=== PATIENT | male | born 1960 | race Two or more races ===

== ENCOUNTER 2021-01-05 01:37 | Inpatient (IN) | payer MEDICAID ==
[~2021-01-05] VITALS: Ht 172.7 cm; Wt 90.9 kg
[~2021-01-05 01:37] MED LIST: QUET25TA PO
[2021-01-05 03:45] LABS: COVID AG,FIA SOURCE NASOPHARYNGEAL
[2021-01-05] MEDS ORDERED: LORazepam 2 MG TABLET PO ONE (03:45)
[2021-01-05 03:47] LABS: BASOPHILS % (AUTO) 0.5 % (0.0-2.0); EOSINOPHILS % (AUTO) 0.6 % (1.0-6.0); HEMOGLOBIN 11.8 g/dL (13.5-17.5); LYMPHOCYTES # (AUTO) 2.8 K/uL (1.0-4.8); LYMPHOCYTES % (AUTO) 21.6 % (22.0-44.0); MEAN CORPUSCULAR HEMOGLOBIN 28.1 pg (26.0-34.0); MEAN CORPUSCULAR HGB CONC 32.7 G/dL (31.0-37.0); MEAN CORPUSCULAR VOLUME 86 fL (80-100); MONOCYTES # (AUTO) 0.9 K/uL (0.1-1.0); MONOCYTES % (AUTO) 7.1 % (2.0-9.0); NEUTROPHILS % (AUTO) 70.2 % (40.0-70.0); PLATELET COUNT (AUTO) 250 K/uL (150-450); RED BLOOD CELL COUNT(AUTO) 4.18 MIL/uL (4.50-5.90); RED CELL DISTRIBUTION WIDTH 16.6 % (11.5-14.5)
[2021-01-05 03:52] LABS: CALCIUM, TOTAL 8.9 mg/dL (8.8-10.5); CREATININE 1.68 mg/dL (0.60-1.30); POTASSIUM 3.9 mmol/L (3.5-5.1)
[2021-01-05 03:58] LABS: ALBUMIN 3.5 g/dL (3.4-5.0); BILIRUBIN,TOTAL 0.4 mg/dL (0.1-1.0); TOTAL PROTEIN, SERUM 9.2 g/dL (6.4-8.2)
[2021-01-05 04:41] LABS: AMPHET/METH SCREEN,URINE POSITIVE (NEGATIVE); BARBITURATE SCREEN, URINE NEGATIVE (NEGATIVE); BENZODIAZEPINES SCREEN,URINE NEGATIVE (NEGATIVE); CANNABINOID SCREEN,URINE POSITIVE (NEGATIVE); COCAINE SCREEN,URINE NEGATIVE (NEGATIVE); METHADONE SCREEN, URINE NEGATIVE (NEGATIVE); OPIATE SCREEN,URINE NEGATIVE (NEGATIVE)
[2021-01-05 04:45] VITALS: BP 149/81
[2021-01-05 04:45] LABS: PHENCYCLIDINE SCREEN,URINE NEGATIVE (NEGATIVE)
[2021-01-05] MEDS ORDERED: LORazepam 2 MG TABLET PO PRN (04:45)
[2021-01-05] MEDS ORDERED: HALOPERIDOL 5 MG TABLET PO PRN (04:45)
[2021-01-05 05:45] LABS: APPEARANCE,URINE TURBID (CLEAR); BILIRUBIN,URINE NEGATIVE (NEGATIVE); GLUCOSE, URINE (UA) NEGATIVE (NEGATIVE); KETONES,URINE TRACE mg/dL (NEGATIVE); LEUKOCYTE ESTERASE ,URINE NEGATIVE (NEGATIVE); NITRATE,URINE NEGATIVE (NEGATIVE); OCCULT BLOOD,URINE TRACE (NEGATIVE); PROTEIN,URINE SEE CONFIRM (NEGATIVE); UROBILINOGEN,URINE 0.2 mg/dL (<=1.0)
[2021-01-05 05:46] LABS: RBC,URINE 0-2 /HPF (0-2); SULFOSALICYLIC ACID,URINE 3+ (Negative)
[2021-01-05 05:47] LABS: BACTERIA,URINE Many /HPF (None Seen)
[2021-01-05] MEDS ORDERED: INFLUENZA VIRUS VACCINE QVS 2021-22 (6MO+)/PF 60 MCG/0.5 ML SYRINGE IM. ONE (06:30)
[2021-01-05] MEDS ORDERED: PETROLATUM,WHITE 28 GM JELLY TP PRN (06:45)
[2021-01-05] MEDS ORDERED: ACETAMINOPHEN 325 MG TABLET PO PRN (06:45)
[2021-01-05] MEDS ORDERED: DOCUSATE SODIUM 100 MG CAPSULE PO PRN (06:45)
[2021-01-05] MEDS ORDERED: LOPERAMIDE HCL 2 MG CAPSULE PO PRN (06:45)
[2021-01-05] MEDS ORDERED: ALBUTEROL SULFATE HFA 90 MCG/PUFF 8 GM INHALER IH PRN (06:45)
[2021-01-05] MEDS ORDERED: NICOTINE 14 MG/24 HOUR PATCH TD PRN (06:45)
[2021-01-05] MEDS ORDERED: ONDANSETRON HCL 4 MG TABLET PO PRN (06:45)
[2021-01-05] MEDS ORDERED: IBUPROFEN 400 MG TABLET PO PRN (06:45)
[2021-01-05] MEDS ORDERED: MAG HYDROX/AL HYDROX/SIMETH ES 30 ML SUSPENSION UDCUP PO PRN (06:45)
[2021-01-05] MEDS ORDERED: CloNIDine HCL 0.1 MG TABLET PO PRN (06:45)
[2021-01-05] MEDS ORDERED: GuaiFENesin/D-METHORPHAN [SUGAR-FREE] 200-20MG/10 ML SYRUP UDCUP PO PRN (06:45)
[2021-01-05] MEDS ORDERED: MAGNESIUM HYDROXIDE SUSPENSION 30 ML UDCUP PO PRN (06:45)
[2021-01-05 10:08] VITALS: BP 147/84
[2021-01-05 12:37] VITALS: BP 142/86
[2021-01-05 16:45] VITALS: BP 129/90
[2021-01-05] MEDS: QUEtiapine FUMARATE 100 MG TABLET PO SCH (20:08)
[2021-01-06 06:54] LABS: CHOL/HDL RATIO 2.7 (4.2-7.3)
[2021-01-06 09:57] VITALS: BP 138/82
[2021-01-06 12:57] VITALS: BP 128/82
[2021-01-06 17:07] VITALS: BP 139/85
[2021-01-06 18:59] VITALS: BP 132/79
[2021-01-06] MEDS ORDERED: TraMADol HCL 50 MG TABLET PO PRN (19:45)
[2021-01-06] MEDS: QUEtiapine FUMARATE 100 MG TABLET PO SCH (20:25)
[2021-01-07 09:53] VITALS: BP 130/76
[2021-01-07 12:50] VITALS: BP 128/79
[2021-01-07 16:30] VITALS: BP 136/76
[2021-01-07 17:17] VITALS: BP 131/77
[2021-01-07] MEDS: QUEtiapine FUMARATE 100 MG TABLET PO SCH (20:21)
[2021-01-08 08:00] VITALS: BP 110/74
[2021-01-08 16:45] VITALS: BP 138/89
[2021-01-08] MEDS: QUEtiapine FUMARATE 100 MG TABLET PO SCH (20:21)
[2021-01-08] MEDS: ZOLPIDEM TARTRATE 10 MG TABLET PO PRN (21:15)
[2021-01-09 08:00] VITALS: BP 140/94
[2021-01-09 16:42] VITALS: BP 147/94
[2021-01-09] MEDS: QUEtiapine FUMARATE 100 MG TABLET PO SCH (20:19)
[2021-01-10 07:43] LABS: BASOPHILS % (AUTO) 0.6 % (0.0-2.0); EOSINOPHILS % (AUTO) 4.6 % (1.0-6.0); HEMATOCRIT 35.4 % (41-53); HEMOGLOBIN 11.6 g/dL (13.5-17.5); LYMPHOCYTES # (AUTO) 2.6 K/uL (1.0-4.8); MEAN CORPUSCULAR HEMOGLOBIN 28.7 pg (26.0-34.0); MEAN CORPUSCULAR HGB CONC 32.7 G/dL (31.0-37.0); MEAN CORPUSCULAR VOLUME 88 fL (80-100); MONOCYTES # (AUTO) 0.8 K/uL (0.1-1.0); MONOCYTES % (AUTO) 9.9 % (2.0-9.0); NEUTROPHILS # (AUTO) 4.7 K/uL (1.8-7.7); NEUTROPHILS % (AUTO) 54.9 % (40.0-70.0); PLATELET COUNT (AUTO) 231 K/uL (150-450); RED BLOOD CELL COUNT(AUTO) 4.04 MIL/uL (4.50-5.90); RED CELL DISTRIBUTION WIDTH 16.8 % (11.5-14.5)
[2021-01-10 07:55] LABS: CALCIUM, TOTAL 8.4 mg/dL (8.8-10.5); CREATININE 1.39 mg/dL (0.60-1.30); POTASSIUM 4.7 mmol/L (3.5-5.1)
[2021-01-10 08:00] VITALS: BP 139/71
[2021-01-10 17:14] VITALS: BP 111/79
[2021-01-10 20:00] VITALS: BP 134/78
[2021-01-10] MEDS: QUEtiapine FUMARATE 200 MG TABLET PO SCH (20:07)
[2021-01-11 08:20] VITALS: BP 108/64
[2021-01-11 16:00] VITALS: BP 151/92
[2021-01-11] MEDS: QUEtiapine FUMARATE 200 MG TABLET PO SCH (20:25)
[2021-01-12] MEDS: SERTRALINE HCL 50 MG TABLET PO SCH (14:21)
[2021-01-12 16:41] VITALS: BP 140/90
[2021-01-12] MEDS: QUEtiapine FUMARATE 200 MG TABLET PO SCH (20:46)
[2021-01-12 21:22] LABS: COVID AG,FIA SOURCE NASAL SWAB
[2021-01-13] MEDS: SERTRALINE HCL 50 MG TABLET PO SCH (08:46)
[2021-01-13 09:47] VITALS: BP 142/81
[2021-01-13 16:20] VITALS: BP 136/80
[2021-01-13] MEDS: QUEtiapine FUMARATE 200 MG TABLET PO SCH (20:58)
[2021-01-13] MEDS: ZOLPIDEM TARTRATE 10 MG TABLET PO PRN (20:59)
[2021-01-14 08:24] VITALS: BP 134/95
[2021-01-14] MEDS: SERTRALINE HCL 50 MG TABLET PO SCH (09:38)
[2021-01-14 16:29] VITALS: BP 149/91
[2021-01-14] MEDS: QUEtiapine FUMARATE 200 MG TABLET PO SCH (21:34)
[2021-01-14] MEDS: ZOLPIDEM TARTRATE 10 MG TABLET PO PRN (21:35)
[2021-01-15] MEDS: SERTRALINE HCL 50 MG TABLET PO SCH (08:38)
[2021-01-15 08:40] VITALS: BP 144/88
[2021-01-15 16:42] VITALS: BP 159/94
[2021-01-15] MEDS: ZOLPIDEM TARTRATE 10 MG TABLET PO PRN (20:15)
[2021-01-15] MEDS: QUEtiapine FUMARATE 200 MG TABLET PO SCH (20:15)
[2021-01-16] MEDS: SERTRALINE HCL 50 MG TABLET PO SCH (08:22)
[2021-01-16 08:40] VITALS: BP 152/86
[2021-01-16 16:00] VITALS: BP 149/93
[2021-01-16 16:24] VITALS: BP 149/93
[2021-01-16] MEDS: QUEtiapine FUMARATE 200 MG TABLET PO SCH (20:07)
[2021-01-16] MEDS: ZOLPIDEM TARTRATE 10 MG TABLET PO PRN (21:39)
[2021-01-17] MEDS: SERTRALINE HCL 50 MG TABLET PO SCH (08:17)
[2021-01-17 09:42] VITALS: BP 121/76
[2021-01-17 16:00] VITALS: BP 140/92
[2021-01-17] MEDS: QUEtiapine FUMARATE 200 MG TABLET PO SCH (20:09)
[2021-01-18] MEDS: SERTRALINE HCL 50 MG TABLET PO SCH (08:52)
[2021-01-18] MEDS: MULTIVITAMINS WITH MINERALS, THERAPEUTIC TABLET PO SCH (08:52)
[2021-01-18 09:28] VITALS: BP 155/96
[2021-01-18 16:41] VITALS: BP 141/82
[2021-01-18] MEDS: QUEtiapine FUMARATE 200 MG TABLET PO SCH (20:28)
[2021-01-19 09:05] VITALS: BP 133/86
[2021-01-19 09:22] LABS: COVID AG,FIA SOURCE NASAL SWAB
[2021-01-19] MEDS: MULTIVITAMINS WITH MINERALS, THERAPEUTIC TABLET PO SCH (09:27)
[2021-01-19] MEDS: SERTRALINE HCL 50 MG TABLET PO SCH (09:27)
[2021-01-19 16:00] VITALS: BP 142/92
[2021-01-19] MEDS: QUEtiapine FUMARATE 200 MG TABLET PO SCH (20:17)
[2021-01-20] MEDS: SERTRALINE HCL 50 MG TABLET PO SCH (08:47)
[2021-01-20] MEDS: MULTIVITAMINS WITH MINERALS, THERAPEUTIC TABLET PO SCH (08:47)
[2021-01-20 09:42] VITALS: BP 145/82
[2021-01-20 16:00] VITALS: BP 104/58
[2021-01-20 16:18] VITALS: BP 104/60
[2021-01-20] MEDS: QUEtiapine FUMARATE 200 MG TABLET PO SCH (20:07)
[2021-01-21 08:30] VITALS: BP 110/77
[2021-01-21] MEDS: MULTIVITAMINS WITH MINERALS, THERAPEUTIC TABLET PO SCH (08:40)
[2021-01-21] MEDS: SERTRALINE HCL 50 MG TABLET PO SCH (08:40)
[2021-01-21 16:14] VITALS: BP 131/77
[2021-01-21] MEDS: QUEtiapine FUMARATE 200 MG TABLET PO SCH (20:04)
[2021-01-22] MEDS: SERTRALINE HCL 50 MG TABLET PO SCH (09:20)
[2021-01-22] MEDS: MULTIVITAMINS WITH MINERALS, THERAPEUTIC TABLET PO SCH (09:20)
[2021-01-22 09:52] VITALS: BP 140/93
[2021-01-22 16:00] VITALS: BP 120/80
[2021-01-22] MEDS: QUEtiapine FUMARATE 200 MG TABLET PO SCH (20:07)
[2021-01-23] MEDS: SERTRALINE HCL 50 MG TABLET PO SCH (08:25)
[2021-01-23] MEDS: MULTIVITAMINS WITH MINERALS, THERAPEUTIC TABLET PO SCH (08:25)
[2021-01-23 16:54] VITALS: BP 140/72
[2021-01-23] MEDS: QUEtiapine FUMARATE 200 MG TABLET PO SCH (21:36)
[2021-01-23] MEDS: ZOLPIDEM TARTRATE 10 MG TABLET PO PRN (21:36)
[2021-01-24] MEDS: MULTIVITAMINS WITH MINERALS, THERAPEUTIC TABLET PO SCH (08:27)
[2021-01-24] MEDS: SERTRALINE HCL 50 MG TABLET PO SCH (08:27)
[2021-01-24 09:00] VITALS: BP 140/86
[2021-01-24 16:00] VITALS: BP 112/69
[2021-01-24] MEDS: QUEtiapine FUMARATE 200 MG TABLET PO SCH (20:06)
[2021-01-25 08:00] VITALS: BP 111/72
[2021-01-25] MEDS: MULTIVITAMINS WITH MINERALS, THERAPEUTIC TABLET PO SCH (08:46)
[2021-01-25] MEDS: SERTRALINE HCL 100 MG TABLET PO SCH (08:46)
[2021-01-25 16:48] VITALS: BP 103/73
[2021-01-25] MEDS: QUEtiapine FUMARATE 200 MG TABLET PO SCH (20:02)
[2021-01-26 08:00] VITALS: BP 128/87
[2021-01-26] MEDS: MULTIVITAMINS WITH MINERALS, THERAPEUTIC TABLET PO SCH (08:57)
[2021-01-26] MEDS: SERTRALINE HCL 100 MG TABLET PO SCH (08:57)
[2021-01-26 13:38] LABS: COVID AG,FIA SOURCE NASOPHARYNGEAL
[2021-01-26 17:08] VITALS: BP 127/77
[2021-01-26] MEDS: QUEtiapine FUMARATE 200 MG TABLET PO SCH (20:10)
[2021-01-27] MEDS: MULTIVITAMINS WITH MINERALS, THERAPEUTIC TABLET PO SCH (08:41)
[2021-01-27] MEDS: SERTRALINE HCL 100 MG TABLET PO SCH (08:41)
[2021-01-27 10:19] VITALS: BP 126/83
[2021-01-27 16:00] VITALS: BP 136/85
[2021-01-27] MEDS: QUEtiapine FUMARATE 200 MG TABLET PO SCH (20:10)
[2021-01-28 08:42] VITALS: BP 140/87
[2021-01-28] MEDS: MULTIVITAMINS WITH MINERALS, THERAPEUTIC TABLET PO SCH (08:58)
[2021-01-28] MEDS: SERTRALINE HCL 100 MG TABLET PO SCH (08:58)
[2021-01-28 16:25] VITALS: BP 126/79
[2021-01-28] MEDS: QUEtiapine FUMARATE 200 MG TABLET PO SCH (20:14)
[2021-01-29] MEDS: MULTIVITAMINS WITH MINERALS, THERAPEUTIC TABLET PO SCH (08:23)
[2021-01-29] MEDS: SERTRALINE HCL 100 MG TABLET PO SCH (08:23)
[2021-01-29 09:00] VITALS: BP 105/71
[2021-01-29 16:00] VITALS: BP 127/87
[2021-01-29] MEDS: QUEtiapine FUMARATE 200 MG TABLET PO SCH (20:06)
[2021-01-30] MEDS: MULTIVITAMINS WITH MINERALS, THERAPEUTIC TABLET PO SCH (09:21)
[2021-01-30] MEDS: SERTRALINE HCL 100 MG TABLET PO SCH (09:21)
[2021-01-30 10:08] VITALS: BP 140/88
[2021-01-30 16:45] VITALS: BP 135/82
[2021-01-30] MEDS: QUEtiapine FUMARATE 200 MG TABLET PO SCH (20:08)
[2021-01-31 08:10] VITALS: BP 121/78
[2021-01-31] MEDS: MULTIVITAMINS WITH MINERALS, THERAPEUTIC TABLET PO SCH (09:13)
[2021-01-31] MEDS: SERTRALINE HCL 100 MG TABLET PO SCH (09:13)
[2021-01-31 16:28] VITALS: BP 134/79
[2021-01-31] MEDS: QUEtiapine FUMARATE 200 MG TABLET PO SCH (20:59)
[2021-02-01 08:00] VITALS: BP 115/72
[2021-02-01 08:30] VITALS: BP 115/72
[2021-02-01] MEDS: SERTRALINE HCL 100 MG TABLET PO SCH (08:36)
[2021-02-01] MEDS: MULTIVITAMINS WITH MINERALS, THERAPEUTIC TABLET PO SCH (08:36)
[2021-02-01 16:16] VITALS: BP 129/74
[2021-02-01] MEDS: QUEtiapine FUMARATE 200 MG TABLET PO SCH (20:12)
[2021-02-02 08:28] LABS: COVID AG,FIA SOURCE NASAL SWAB
[2021-02-02 08:47] VITALS: BP 120/69
[2021-02-02] MEDS: MULTIVITAMINS WITH MINERALS, THERAPEUTIC TABLET PO SCH (09:33)
[2021-02-02] MEDS: SERTRALINE HCL 100 MG TABLET PO SCH (09:33)
[2021-02-02 16:14] VITALS: BP 107/71
[2021-02-02] MEDS: QUEtiapine FUMARATE 200 MG TABLET PO SCH (20:12)
[2021-02-03] MEDS: SERTRALINE HCL 100 MG TABLET PO SCH (08:34)
[2021-02-03] MEDS: MULTIVITAMINS WITH MINERALS, THERAPEUTIC TABLET PO SCH (08:34)
[2021-02-03 09:00] VITALS: BP 120/68
[2021-02-03 16:24] VITALS: BP 115/80
[2021-02-03] MEDS: QUEtiapine FUMARATE 200 MG TABLET PO SCH (20:04)
[2021-02-04] MEDS: MULTIVITAMINS WITH MINERALS, THERAPEUTIC TABLET PO SCH (08:20)
[2021-02-04] MEDS: SERTRALINE HCL 100 MG TABLET PO SCH (08:20)
[2021-02-04 09:38] VITALS: BP 140/73
[2021-02-04 16:15] VITALS: BP 126/80
[2021-02-04] MEDS: QUEtiapine FUMARATE 200 MG TABLET PO SCH (20:27)
[2021-02-05] MEDS: MULTIVITAMINS WITH MINERALS, THERAPEUTIC TABLET PO SCH (08:36)
[2021-02-05] MEDS: SERTRALINE HCL 100 MG TABLET PO SCH (08:36)
[2021-02-05 09:32] VITALS: BP 123/74
[2021-02-05 16:21] VITALS: BP 144/87
[2021-02-05] MEDS: QUEtiapine FUMARATE 200 MG TABLET PO SCH (20:44)
[2021-02-06 08:13] VITALS: BP 160/95
[2021-02-06] MEDS: MULTIVITAMINS WITH MINERALS, THERAPEUTIC TABLET PO SCH (09:20)
[2021-02-06] MEDS: SERTRALINE HCL 100 MG TABLET PO SCH (09:20)
[2021-02-06 16:23] VITALS: BP 137/78
[2021-02-06] MEDS: QUEtiapine FUMARATE 200 MG TABLET PO SCH (20:03)
[2021-02-07] MEDS: MULTIVITAMINS WITH MINERALS, THERAPEUTIC TABLET PO SCH (08:36)
[2021-02-07] MEDS: SERTRALINE HCL 100 MG TABLET PO SCH (08:36)
[2021-02-07 09:18] VITALS: BP 137/81
[2021-02-07 16:24] VITALS: BP 122/79
[2021-02-07] MEDS: QUEtiapine FUMARATE 200 MG TABLET PO SCH (20:26)
[2021-02-08 08:00] VITALS: BP 99/63
[2021-02-08] MEDS: MULTIVITAMINS WITH MINERALS, THERAPEUTIC TABLET PO SCH (09:13)
[2021-02-08] MEDS: SERTRALINE HCL 100 MG TABLET PO SCH (09:13)
[2021-02-08 16:00] VITALS: BP 126/84
[2021-02-08] MEDS: QUEtiapine FUMARATE 200 MG TABLET PO SCH (20:29)
[2021-02-09 09:24] VITALS: BP 136/93
[2021-02-09 09:57] LABS: COVID AG,FIA SOURCE NASAL SWAB
[2021-02-09] MEDS: SERTRALINE HCL 100 MG TABLET PO SCH (10:38)
[2021-02-09] MEDS: MULTIVITAMINS WITH MINERALS, THERAPEUTIC TABLET PO SCH (10:38)
[2021-02-09 16:17] VITALS: BP 144/82
[2021-02-09] MEDS: QUEtiapine FUMARATE 200 MG TABLET PO SCH (20:32)
[2021-02-09] MEDS: ZOLPIDEM TARTRATE 10 MG TABLET PO PRN (20:51)
[2021-02-10] MEDS: SERTRALINE HCL 100 MG TABLET PO SCH (08:28)
[2021-02-10] MEDS: MULTIVITAMINS WITH MINERALS, THERAPEUTIC TABLET PO SCH (08:28)
[2021-02-10 09:31] VITALS: BP 121/63
[2021-02-10 16:24] VITALS: BP 133/84
[2021-02-10] MEDS: QUEtiapine FUMARATE 200 MG TABLET PO SCH (20:27)
[2021-02-11 08:34] VITALS: BP 135/84
[2021-02-11] MEDS: MULTIVITAMINS WITH MINERALS, THERAPEUTIC TABLET PO SCH (10:04)
[2021-02-11] MEDS: SERTRALINE HCL 100 MG TABLET PO SCH (10:05)
[2021-02-11 16:34] VITALS: BP 119/69
[2021-02-11] MEDS: QUEtiapine FUMARATE 200 MG TABLET PO SCH (20:10)
[2021-02-12 08:11] VITALS: BP 141/82
[2021-02-12] MEDS: MULTIVITAMINS WITH MINERALS, THERAPEUTIC TABLET PO SCH (09:06)
[2021-02-12] MEDS: SERTRALINE HCL 100 MG TABLET PO SCH (09:06)
[2021-02-12 16:14] VITALS: BP 123/82
[2021-02-12] MEDS: QUEtiapine FUMARATE 200 MG TABLET PO SCH (20:18)
[2021-02-12] MEDS: ZOLPIDEM TARTRATE 10 MG TABLET PO PRN (20:34)
[2021-02-13 09:21] VITALS: BP 141/87
[2021-02-13] MEDS: SERTRALINE HCL 100 MG TABLET PO SCH (09:41)
[2021-02-13] MEDS: MULTIVITAMINS WITH MINERALS, THERAPEUTIC TABLET PO SCH (09:41)
[2021-02-13 16:00] VITALS: BP 151/83
[2021-02-13] MEDS: QUEtiapine FUMARATE 200 MG TABLET PO SCH (20:03)
[2021-02-14 08:29] VITALS: BP 134/88
[2021-02-14] MEDS: MULTIVITAMINS WITH MINERALS, THERAPEUTIC TABLET PO SCH (09:34)
[2021-02-14] MEDS: SERTRALINE HCL 100 MG TABLET PO SCH (09:34)
[2021-02-14 16:00] VITALS: BP 125/59
[2021-02-14] MEDS: QUEtiapine FUMARATE 200 MG TABLET PO SCH (20:04)
[2021-02-15 08:31] VITALS: BP 151/109
[2021-02-15] MEDS: MULTIVITAMINS WITH MINERALS, THERAPEUTIC TABLET PO SCH (08:45)
[2021-02-15] MEDS: SERTRALINE HCL 100 MG TABLET PO SCH (08:45)
[2021-02-15 16:16] VITALS: BP 130/90
[2021-02-15] MEDS: QUEtiapine FUMARATE 200 MG TABLET PO SCH (20:12)
[2021-02-16 07:53] LABS: COVID AG,FIA SOURCE NASAL SWAB
[2021-02-16 08:30] VITALS: BP 120/78
[2021-02-16] MEDS: MULTIVITAMINS WITH MINERALS, THERAPEUTIC TABLET PO SCH (08:30)
[2021-02-16] MEDS: SERTRALINE HCL 100 MG TABLET PO SCH (08:30)
[2021-02-16 16:00] VITALS: BP 127/73
[2021-02-16] MEDS: QUEtiapine FUMARATE 200 MG TABLET PO SCH (21:05)
[2021-02-17 09:15] VITALS: BP 147/76
[2021-02-17] MEDS: SERTRALINE HCL 100 MG TABLET PO SCH (09:26)
[2021-02-17] MEDS: MULTIVITAMINS WITH MINERALS, THERAPEUTIC TABLET PO SCH (09:26)
[2021-02-17 16:27] VITALS: BP 126/75
[2021-02-17] MEDS: QUEtiapine FUMARATE 200 MG TABLET PO SCH (20:06)
[2021-02-18 08:10] VITALS: BP 139/93
[2021-02-18] MEDS: SERTRALINE HCL 100 MG TABLET PO SCH (10:38)
[2021-02-18] MEDS: MULTIVITAMINS WITH MINERALS, THERAPEUTIC TABLET PO SCH (10:38)
[2021-02-18 16:46] VITALS: BP 103/63
[2021-02-18] MEDS: QUEtiapine FUMARATE 200 MG TABLET PO SCH (20:29)
[2021-02-19] MEDS: MULTIVITAMINS WITH MINERALS, THERAPEUTIC TABLET PO SCH (08:38)
[2021-02-19] MEDS: SERTRALINE HCL 100 MG TABLET PO SCH (08:38)
[2021-02-19 09:02] VITALS: BP 129/82
[2021-02-19 16:00] VITALS: BP 130/83
[2021-02-19] MEDS: QUEtiapine FUMARATE 200 MG TABLET PO SCH (20:26)
[2021-02-20 07:40] VITALS: BP 155/89
[2021-02-20 08:30] VITALS: BP 155/89
[2021-02-20] MEDS: SERTRALINE HCL 100 MG TABLET PO SCH (09:06)
[2021-02-20] MEDS: MULTIVITAMINS WITH MINERALS, THERAPEUTIC TABLET PO SCH (09:06)
[2021-02-20 16:37] VITALS: BP 123/82
[2021-02-20] MEDS: QUEtiapine FUMARATE 200 MG TABLET PO SCH (20:07)
[2021-02-21 08:00] VITALS: BP 104/69
[2021-02-21] MEDS: SERTRALINE HCL 100 MG TABLET PO SCH (08:31)
[2021-02-21] MEDS: MULTIVITAMINS WITH MINERALS, THERAPEUTIC TABLET PO SCH (08:31)
[2021-02-21 16:30] VITALS: BP 144/85
[2021-02-21] MEDS: QUEtiapine FUMARATE 200 MG TABLET PO SCH (20:09)
[2021-02-22 08:00] VITALS: BP 132/78
[2021-02-22] MEDS: SERTRALINE HCL 100 MG TABLET PO SCH (09:21)
[2021-02-22] MEDS: MULTIVITAMINS WITH MINERALS, THERAPEUTIC TABLET PO SCH (09:21)
[2021-02-22 16:00] VITALS: BP 124/80
[2021-02-22] MEDS: QUEtiapine FUMARATE 200 MG TABLET PO SCH (20:20)
[2021-02-23 08:00] VITALS: BP 118/80
[2021-02-23] MEDS: MULTIVITAMINS WITH MINERALS, THERAPEUTIC TABLET PO SCH (08:38)
[2021-02-23] MEDS: SERTRALINE HCL 100 MG TABLET PO SCH (08:38)
[2021-02-23 16:37] VITALS: BP 116/75
[2021-02-23] MEDS: QUEtiapine FUMARATE 200 MG TABLET PO SCH (20:17)
[2021-02-24 08:00] VITALS: BP 141/91
[2021-02-24] MEDS: MULTIVITAMINS WITH MINERALS, THERAPEUTIC TABLET PO SCH (09:06)
[2021-02-24] MEDS: SERTRALINE HCL 100 MG TABLET PO SCH (09:06)
[2021-02-24 11:46] LABS: COVID AG,FIA SOURCE NASOPHARYNGEAL
[2021-02-24 16:28] VITALS: BP 124/124
[2021-02-24] MEDS: QUEtiapine FUMARATE 200 MG TABLET PO SCH (20:18)
[2021-02-25] MEDS: SERTRALINE HCL 100 MG TABLET PO SCH (07:57)
[2021-02-25] MEDS: MULTIVITAMINS WITH MINERALS, THERAPEUTIC TABLET PO SCH (07:57)
[2021-02-25 08:00] VITALS: BP 141/97
[2021-02-25 16:23] VITALS: BP 108/67
[2021-02-25] MEDS: QUEtiapine FUMARATE 200 MG TABLET PO SCH (20:00)
[2021-02-26] MEDS: MULTIVITAMINS WITH MINERALS, THERAPEUTIC TABLET PO SCH (08:20)
[2021-02-26] MEDS: SERTRALINE HCL 100 MG TABLET PO SCH (08:20)
[2021-02-26 08:26] VITALS: BP 138/81
[2021-02-26 16:36] VITALS: BP 135/75
[2021-02-26] MEDS: QUEtiapine FUMARATE 200 MG TABLET PO SCH (20:17)
[2021-02-27 08:00] VITALS: BP 128/74
[2021-02-27] MEDS: MULTIVITAMINS WITH MINERALS, THERAPEUTIC TABLET PO SCH (08:52)
[2021-02-27] MEDS: SERTRALINE HCL 100 MG TABLET PO SCH (08:52)
[2021-02-27 16:31] VITALS: BP 155/84
[2021-02-27] MEDS: QUEtiapine FUMARATE 200 MG TABLET PO SCH (20:05)
[2021-02-28] MEDS: MULTIVITAMINS WITH MINERALS, THERAPEUTIC TABLET PO SCH (08:05)
[2021-02-28] MEDS: SERTRALINE HCL 100 MG TABLET PO SCH (08:05)
[2021-02-28 09:52] VITALS: BP 132/84
[2021-02-28 16:13] VITALS: BP 151/84
[2021-02-28] MEDS: QUEtiapine FUMARATE 200 MG TABLET PO SCH (20:50)
[2021-03-01] MEDS: MULTIVITAMINS WITH MINERALS, THERAPEUTIC TABLET PO SCH (08:25)
[2021-03-01] MEDS: SERTRALINE HCL 100 MG TABLET PO SCH (08:25)
[2021-03-01 08:30] VITALS: BP 157/63
[2021-03-01] MEDS ORDERED: SERT-440 PO (09:55)
[2021-03-01] MEDS ORDERED: QUET200T30 PO (09:55)
== END 2021-03-01 12:00 | disposition home or self-care (01) | DRG 750 ==
LOC: EMS 01:38 → 3EI 04:43
PROVIDERS: ADMIT Psychiatry & Neurology Psychiatry; ATTEND Psychiatry & Neurology Psychiatry
DX: F25.1 Schizoaffective disorder, depressive type (principal); N17.9 Acute kidney failure, unspecified; R45.851 Suicidal ideations; D72.829 Elevated white blood cell count, unspecified; F10.10 Alcohol abuse, uncomplicated; F17.200 Nicotine dependence, unspecified, uncomplicated; F15.10 Other stimulant abuse, uncomplicated; F12.10 Cannabis abuse, uncomplicated; Y90.1 Blood alcohol level of 20-39 mg/100 ml; F41.9 Anxiety disorder, unspecified; F32.A Depression, unspecified; D64.9 Anemia, unspecified; Z20.822 Contact with and (suspected) exposure to COVID-19; Z59.00 Homelessness unspecified; Z79.899 Other long term (current) drug therapy; Z71.6 Tobacco abuse counseling
CPT/HCPCS: 80048; 80053; 80061; 81001; 81002; 83036; 85025; 87081; 87086; 99285; G0480

== ENCOUNTER 2021-03-13 09:56 | Emergency (ER) | payer MEDICAID ==
[~2021-03-13] VITALS: Ht 170.2 cm; Wt 72.7 kg
[~2021-03-13 09:56] MED LIST changes: +QUET200T30 PO; -QUET25TA PO; +SERT-440 PO
[2021-03-13 12:55] LABS: BASOPHILS % (AUTO) 0.4 % (0.0-2.0); EOSINOPHILS % (AUTO) 0.6 % (1.0-6.0); HEMATOCRIT 47.6 % (41-53); HEMOGLOBIN 15.7 g/dL (13.5-17.5); LYMPHOCYTES # (AUTO) 2.6 K/uL (1.0-4.8); LYMPHOCYTES % (AUTO) 23.3 % (22.0-44.0); MEAN CORPUSCULAR HEMOGLOBIN 26.9 pg (26.0-34.0); MEAN CORPUSCULAR HGB CONC 32.9 G/dL (31.0-37.0); MEAN CORPUSCULAR VOLUME 82 fL (80-100); MONOCYTES # (AUTO) 0.6 K/uL (0.1-1.0); MONOCYTES % (AUTO) 5.8 % (2.0-9.0); NEUTROPHILS # (AUTO) 7.7 K/uL (1.8-7.7); NEUTROPHILS % (AUTO) 69.9 % (40.0-70.0); PLATELET COUNT (AUTO) 364 K/uL (150-450); RED BLOOD CELL COUNT(AUTO) 5.81 MIL/uL (4.50-5.90); RED CELL DISTRIBUTION WIDTH 12.2 % (11.5-14.5)
[2021-03-13 13:27] LABS: ANION GAP 12 mmol/L (8-16); CALCIUM, TOTAL 8.5 mg/dL (8.8-10.5); CARBON DIOXIDE 21 mmol/L (22-29); CHLORIDE 104 mmol/L (98-107); CREATININE 1.65 mg/dL (0.60-1.30); GLOMERULAR FILTR. RATE CALC 43 mL/min (>60); GLUCOSE,RANDOM 112 mg/dL (70-110); POTASSIUM 4.6 mmol/L (3.5-5.1); SODIUM SERUM 137 mmol/L (136-145); UREA NITROGEN, BLOOD 48 mg/dL (7-18)
[2021-03-13 13:32] LABS: ALANINE AMINOTRANSFERASE 38 U/L (12-78); ALBUMIN 3.2 g/dL (3.4-5.0); ALKALINE PHOSPHATASE 83 U/L (46-116); ASPARTATE AMINOTRANSFERASE 37 U/L (15-37); BILIRUBIN,TOTAL 0.4 mg/dL (0.1-1.0); TOTAL PROTEIN, SERUM 8.6 g/dL (6.4-8.2)
[2021-03-13 14:07] LABS: AMPHET/METH SCREEN,URINE POSITIVE (NEGATIVE); BARBITURATE SCREEN, URINE NEGATIVE (NEGATIVE); BENZODIAZEPINES SCREEN,URINE NEGATIVE (NEGATIVE); CANNABINOID SCREEN,URINE NEGATIVE (NEGATIVE); COCAINE SCREEN,URINE NEGATIVE (NEGATIVE); METHADONE SCREEN, URINE NEGATIVE (NEGATIVE); OPIATE SCREEN,URINE NEGATIVE (NEGATIVE)
[2021-03-13 14:08] LABS: PHENCYCLIDINE SCREEN,URINE NEGATIVE (NEGATIVE)
[2021-03-13] MEDS ORDERED: IBUPROFEN 600 MG TABLET PO ONE (14:30)
[2021-03-13 14:32] VITALS: BP 132/78
== END 2021-03-13 14:38 | disposition home or self-care (01) ==
LOC: EMS 10:01
DX: F25.1 Schizoaffective disorder, depressive type (principal); F41.9 Anxiety disorder, unspecified; F17.210 Nicotine dependence, cigarettes, uncomplicated; F11.90 Opioid use, unspecified, uncomplicated; F15.90 Other stimulant use, unspecified, uncomplicated
CPT/HCPCS: 36415; 80053; 80307; 85025; 99284; G0480

== ENCOUNTER 2021-03-17 04:20 | Emergency (ER) | payer MEDICAID ==
[2021-03-17 05:36] LABS: BASOPHILS % (AUTO) 0.5 % (0.0-2.0); EOSINOPHILS % (AUTO) 1.4 % (1.0-6.0); HEMOGLOBIN 11.1 g/dL (13.5-17.5); LYMPHOCYTES # (AUTO) 1.4 K/uL (1.0-4.8); LYMPHOCYTES % (AUTO) 14.2 % (22.0-44.0); MEAN CORPUSCULAR HEMOGLOBIN 29.4 pg (26.0-34.0); MEAN CORPUSCULAR HGB CONC 33.5 G/dL (31.0-37.0); MEAN CORPUSCULAR VOLUME 88 fL (80-100); MONOCYTES # (AUTO) 0.9 K/uL (0.1-1.0); MONOCYTES % (AUTO) 8.9 % (2.0-9.0); NEUTROPHILS # (AUTO) 7.4 K/uL (1.8-7.7); PLATELET COUNT (AUTO) 268 K/uL (150-450); RED BLOOD CELL COUNT(AUTO) 3.77 MIL/uL (4.50-5.90); RED CELL DISTRIBUTION WIDTH 17.2 % (11.5-14.5)
[2021-03-17 06:02] LABS: CALCIUM, TOTAL 8.5 mg/dL (8.8-10.5); CREATININE 1.47 mg/dL (0.60-1.30); POTASSIUM 4.6 mmol/L (3.5-5.1)
[2021-03-17 06:07] LABS: ALBUMIN 3.1 g/dL (3.4-5.0); BILIRUBIN,TOTAL 0.2 mg/dL (0.1-1.0); TOTAL PROTEIN, SERUM 8.6 g/dL (6.4-8.2)
== END 2021-03-17 09:18 | disposition home or self-care (01) ==
LOC: EMS 04:23
DX: F25.1 Schizoaffective disorder, depressive type (principal); F10.20 Alcohol dependence, uncomplicated; F41.9 Anxiety disorder, unspecified; F11.90 Opioid use, unspecified, uncomplicated; F15.90 Other stimulant use, unspecified, uncomplicated; F17.210 Nicotine dependence, cigarettes, uncomplicated; Z79.899 Other long term (current) drug therapy; Y90.6 Blood alcohol level of 120-199 mg/100 ml
CPT/HCPCS: 36415; 80053; 85025; 99284; G0480

== ENCOUNTER 2021-05-01 16:25 | Inpatient (IN) | payer MEDICAID ==
[~2021-05-01] VITALS: Ht 172.7 cm; Wt 79.9 kg
[2021-05-01 19:47] LABS: BASOPHILS % (AUTO) 0.5 % (0.0-2.0); EOSINOPHILS % (AUTO) 0.4 % (1.0-6.0); HEMATOCRIT 35.3 % (41-53); HEMOGLOBIN 11.9 g/dL (13.5-17.5); LYMPHOCYTES # (AUTO) 1.8 K/uL (1.0-4.8); LYMPHOCYTES % (AUTO) 20.1 % (22.0-44.0); MEAN CORPUSCULAR HEMOGLOBIN 29.4 pg (26.0-34.0); MEAN CORPUSCULAR HGB CONC 33.7 G/dL (31.0-37.0); MEAN CORPUSCULAR VOLUME 87 fL (80-100); MONOCYTES # (AUTO) 0.7 K/uL (0.1-1.0); NEUTROPHILS # (AUTO) 6.4 K/uL (1.8-7.7); PLATELET COUNT (AUTO) 218 K/uL (150-450); RED BLOOD CELL COUNT(AUTO) 4.06 MIL/uL (4.50-5.90); RED CELL DISTRIBUTION WIDTH 15.6 % (11.5-14.5)
[2021-05-01 19:56] LABS: CALCIUM, TOTAL 8.4 mg/dL (8.8-10.5); CREATININE 1.34 mg/dL (0.60-1.30); POTASSIUM 4.1 mmol/L (3.5-5.1)
[2021-05-01 20:02] LABS: ALBUMIN 3.7 g/dL (3.4-5.0); BILIRUBIN,TOTAL 0.5 mg/dL (0.1-1.0); TOTAL PROTEIN, SERUM 9.2 g/dL (6.4-8.2)
[2021-05-01 20:12] LABS: AMPHET/METH SCREEN,URINE POSITIVE (NEGATIVE); BARBITURATE SCREEN, URINE NEGATIVE (NEGATIVE); BENZODIAZEPINES SCREEN,URINE NEGATIVE (NEGATIVE); CANNABINOID SCREEN,URINE NEGATIVE (NEGATIVE); COCAINE SCREEN,URINE NEGATIVE (NEGATIVE); METHADONE SCREEN, URINE NEGATIVE (NEGATIVE); OPIATE SCREEN,URINE NEGATIVE (NEGATIVE)
[2021-05-01 20:13] LABS: PHENCYCLIDINE SCREEN,URINE NEGATIVE (NEGATIVE)
[2021-05-01 21:14] LABS: COVID AG,FIA SOURCE NASAL SWAB
[2021-05-02 03:21] VITALS: BP 133/86
[2021-05-02] MEDS ORDERED: PNEUMOCOCCAL VACCINE POLYVALENT 0.5 ML VIAL [PPSV23] IM. ONE (03:45)
[2021-05-02] MEDS: LORazepam 2 MG TABLET PO PRN (04:08)
[2021-05-02] MEDS ORDERED: CloNIDine HCL 0.1 MG TABLET PO PRN (06:30)
[2021-05-02] MEDS ORDERED: MAG HYDROX/AL HYDROX/SIMETH ES 30 ML SUSPENSION UDCUP PO PRN (06:30)
[2021-05-02] MEDS ORDERED: ONDANSETRON HCL 4 MG TABLET PO PRN (06:30)
[2021-05-02] MEDS ORDERED: LOPERAMIDE HCL 2 MG CAPSULE PO PRN (06:30)
[2021-05-02] MEDS ORDERED: DOCUSATE SODIUM 100 MG CAPSULE PO PRN (06:30)
[2021-05-02] MEDS ORDERED: MAGNESIUM HYDROXIDE SUSPENSION 30 ML UDCUP PO PRN (06:30)
[2021-05-02] MEDS ORDERED: GuaiFENesin/D-METHORPHAN [SUGAR-FREE] 200-20MG/10 ML SYRUP UDCUP PO PRN (06:30)
[2021-05-02] MEDS ORDERED: NICOTINE 14 MG/24 HOUR PATCH TD PRN (06:30)
[2021-05-02] MEDS ORDERED: PETROLATUM,WHITE 28 GM JELLY TP PRN (06:30)
[2021-05-02] MEDS ORDERED: ALBUTEROL SULFATE HFA 90 MCG/PUFF 8 GM INHALER IH PRN (06:30)
[2021-05-02 08:41] VITALS: BP 110/76
[2021-05-02] MEDS: SERTRALINE HCL 100 MG TABLET PO SCH (14:36)
[2021-05-02 16:00] VITALS: BP 130/80
[2021-05-02] MEDS: FOLIC ACID 1 MG TABLET PO SCH (17:37)
[2021-05-02] MEDS: MULTIVITAMINS WITH MINERALS, THERAPEUTIC TABLET PO SCH (17:37)
[2021-05-02] MEDS: THIAMINE 100 MG TABLET PO SCH (17:37)
[2021-05-02] MEDS: HALOPERIDOL 5 MG TABLET PO PRN (19:30)
[2021-05-02] MEDS: QUEtiapine FUMARATE 200 MG TABLET PO SCH (21:08)
[2021-05-03 08:12] VITALS: BP 109/70
[2021-05-03] MEDS: SERTRALINE HCL 100 MG TABLET PO SCH (08:28)
[2021-05-03] MEDS: FOLIC ACID 1 MG TABLET PO SCH (08:28)
[2021-05-03] MEDS: THIAMINE 100 MG TABLET PO SCH (08:28)
[2021-05-03] MEDS: MULTIVITAMINS WITH MINERALS, THERAPEUTIC TABLET PO SCH (08:28)
[2021-05-03 16:19] VITALS: BP 112/69
[2021-05-03] MEDS: HALOPERIDOL 5 MG TABLET PO PRN (20:39)
[2021-05-03] MEDS: QUEtiapine FUMARATE 200 MG TABLET PO SCH (20:39)
[2021-05-04 08:00] VITALS: BP 95/56
[2021-05-04] MEDS: SERTRALINE HCL 100 MG TABLET PO SCH (08:23)
[2021-05-04] MEDS: FOLIC ACID 1 MG TABLET PO SCH (08:23)
[2021-05-04] MEDS: THIAMINE 100 MG TABLET PO SCH (08:23)
[2021-05-04] MEDS: MULTIVITAMINS WITH MINERALS, THERAPEUTIC TABLET PO SCH (08:23)
[2021-05-04 16:25] VITALS: BP 126/73
[2021-05-04] MEDS: QUEtiapine FUMARATE 200 MG TABLET PO SCH (20:02)
[2021-05-05 08:00] VITALS: BP 102/63
[2021-05-05] MEDS: FOLIC ACID 1 MG TABLET PO SCH (10:15)
[2021-05-05] MEDS: THIAMINE 100 MG TABLET PO SCH (10:15)
[2021-05-05] MEDS: SERTRALINE HCL 100 MG TABLET PO SCH (10:15)
[2021-05-05] MEDS: MULTIVITAMINS WITH MINERALS, THERAPEUTIC TABLET PO SCH (10:15)
[2021-05-05 16:51] VITALS: BP 118/82
[2021-05-05 19:19] VITALS: BP 136/82
[2021-05-05] MEDS: ACETAMINOPHEN 325 MG TABLET PO PRN (19:25)
[2021-05-05] MEDS: QUEtiapine FUMARATE 200 MG TABLET PO SCH (20:19)
[2021-05-06 08:00] VITALS: BP 106/66
[2021-05-06] MEDS: FOLIC ACID 1 MG TABLET PO SCH (08:16)
[2021-05-06] MEDS: THIAMINE 100 MG TABLET PO SCH (08:16)
[2021-05-06] MEDS: SERTRALINE HCL 100 MG TABLET PO SCH (08:16)
[2021-05-06] MEDS: MULTIVITAMINS WITH MINERALS, THERAPEUTIC TABLET PO SCH (08:16)
[2021-05-06 16:30] VITALS: BP 119/82
[2021-05-06] MEDS: QUEtiapine FUMARATE 200 MG TABLET PO SCH (20:49)
[2021-05-07 08:00] VITALS: BP 107/61
[2021-05-07] MEDS: THIAMINE 100 MG TABLET PO SCH (08:19)
[2021-05-07] MEDS: FOLIC ACID 1 MG TABLET PO SCH (08:19)
[2021-05-07] MEDS: MULTIVITAMINS WITH MINERALS, THERAPEUTIC TABLET PO SCH (08:19)
[2021-05-07] MEDS: SERTRALINE HCL 100 MG TABLET PO SCH (08:19)
[2021-05-07] MEDS: FERROUS SULFATE 325 MG EC TABLET PO SCH ×2 (15:42→17:57)
[2021-05-07 16:25] VITALS: BP 147/94
[2021-05-07] MEDS: HALOPERIDOL 5 MG TABLET PO PRN (17:09)
[2021-05-07] MEDS: QUEtiapine FUMARATE 200 MG TABLET PO SCH (20:43)
[2021-05-07] MEDS: ZOLPIDEM TARTRATE 10 MG TABLET PO PRN (22:36)
[2021-05-08] MEDS: FERROUS SULFATE 325 MG EC TABLET PO SCH ×3 (06:41→16:05)
[2021-05-08] MEDS: THIAMINE 100 MG TABLET PO SCH (08:30)
[2021-05-08] MEDS: FOLIC ACID 1 MG TABLET PO SCH (08:31)
[2021-05-08] MEDS: SERTRALINE HCL 100 MG TABLET PO SCH (08:31)
[2021-05-08] MEDS: MULTIVITAMINS WITH MINERALS, THERAPEUTIC TABLET PO SCH (08:31)
[2021-05-08 08:50] VITALS: BP 147/95
[2021-05-08 16:00] VITALS: BP 136/86
[2021-05-08] MEDS: QUEtiapine FUMARATE 200 MG TABLET PO SCH (20:14)
[2021-05-08 21:06] LABS: COVID AG,FIA SOURCE NASAL SWAB
[2021-05-09] MEDS: FERROUS SULFATE 325 MG EC TABLET PO SCH ×3 (06:56→17:48)
[2021-05-09] MEDS: MULTIVITAMINS WITH MINERALS, THERAPEUTIC TABLET PO SCH (08:42)
[2021-05-09] MEDS: THIAMINE 100 MG TABLET PO SCH (08:43)
[2021-05-09] MEDS: FOLIC ACID 1 MG TABLET PO SCH (08:43)
[2021-05-09] MEDS: SERTRALINE HCL 100 MG TABLET PO SCH (08:43)
[2021-05-09 08:56] VITALS: BP 129/92
[2021-05-09 16:14] VITALS: BP 138/88
[2021-05-09] MEDS: IBUPROFEN 400 MG TABLET PO PRN (20:21)
[2021-05-09] MEDS: QUEtiapine FUMARATE 200 MG TABLET PO SCH (20:21)
[2021-05-09] MEDS: ZOLPIDEM TARTRATE 10 MG TABLET PO PRN (20:59)
[2021-05-10 03:20] VITALS: BP 144/80
[2021-05-10] MEDS: ACETAMINOPHEN 325 MG TABLET PO PRN (03:24)
[2021-05-10] MEDS: FERROUS SULFATE 325 MG EC TABLET PO SCH ×3 (06:45→16:24)
[2021-05-10] MEDS: THIAMINE 100 MG TABLET PO SCH (08:49)
[2021-05-10] MEDS: MULTIVITAMINS WITH MINERALS, THERAPEUTIC TABLET PO SCH (08:49)
[2021-05-10] MEDS: SERTRALINE HCL 100 MG TABLET PO SCH (08:50)
[2021-05-10] MEDS: FOLIC ACID 1 MG TABLET PO SCH (08:50)
[2021-05-10 08:57] VITALS: BP 163/91
[2021-05-10] MEDS: IBUPROFEN 400 MG TABLET PO PRN (09:04)
[2021-05-10 16:22] VITALS: BP 126/78
[2021-05-10] MEDS: QUEtiapine FUMARATE 200 MG TABLET PO SCH (20:31)
[2021-05-10] MEDS: ZOLPIDEM TARTRATE 10 MG TABLET PO PRN (20:58)
[2021-05-11] MEDS: FERROUS SULFATE 325 MG EC TABLET PO SCH ×3 (06:45→17:20)
[2021-05-11] MEDS: THIAMINE 100 MG TABLET PO SCH (08:07)
[2021-05-11] MEDS: SERTRALINE HCL 100 MG TABLET PO SCH (08:07)
[2021-05-11] MEDS: MULTIVITAMINS WITH MINERALS, THERAPEUTIC TABLET PO SCH (08:07)
[2021-05-11] MEDS: FOLIC ACID 1 MG TABLET PO SCH (08:07)
[2021-05-11 09:16] VITALS: BP 136/90
[2021-05-11 16:47] VITALS: BP 122/62
[2021-05-11] MEDS: QUEtiapine FUMARATE 200 MG TABLET PO SCH (20:02)
[2021-05-11] MEDS: ZOLPIDEM TARTRATE 10 MG TABLET PO PRN (21:09)
[2021-05-12] MEDS: FERROUS SULFATE 325 MG EC TABLET PO SCH ×3 (06:37→17:26)
[2021-05-12] MEDS: FOLIC ACID 1 MG TABLET PO SCH (09:42)
[2021-05-12] MEDS: THIAMINE 100 MG TABLET PO SCH (09:42)
[2021-05-12] MEDS: SERTRALINE HCL 100 MG TABLET PO SCH (09:42)
[2021-05-12] MEDS: MULTIVITAMINS WITH MINERALS, THERAPEUTIC TABLET PO SCH (09:42)
[2021-05-12 10:20] VITALS: BP 150/90
[2021-05-12 16:00] VITALS: BP 146/84
[2021-05-12] MEDS: QUEtiapine FUMARATE 200 MG TABLET PO SCH (20:21)
[2021-05-12] MEDS: ZOLPIDEM TARTRATE 10 MG TABLET PO PRN (20:22)
[2021-05-13 06:21] VITALS: BP 138/79
[2021-05-13] MEDS: IBUPROFEN 400 MG TABLET PO PRN (06:21)
[2021-05-13] MEDS: FERROUS SULFATE 325 MG EC TABLET PO SCH ×3 (06:40→16:13)
[2021-05-13] MEDS: MULTIVITAMINS WITH MINERALS, THERAPEUTIC TABLET PO SCH (08:34)
[2021-05-13] MEDS: FOLIC ACID 1 MG TABLET PO SCH (08:34)
[2021-05-13] MEDS: THIAMINE 100 MG TABLET PO SCH (08:35)
[2021-05-13] MEDS: SERTRALINE HCL 100 MG TABLET PO SCH (08:36)
[2021-05-13 09:17] VITALS: BP 145/88
[2021-05-13 16:25] VITALS: BP 153/90
[2021-05-13] MEDS: QUEtiapine FUMARATE 200 MG TABLET PO SCH (20:06)
[2021-05-13] MEDS: ZOLPIDEM TARTRATE 10 MG TABLET PO PRN (21:04)
[2021-05-14 01:35] VITALS: BP 142/82
[2021-05-14] MEDS: IBUPROFEN 400 MG TABLET PO PRN (01:35)
[2021-05-14] MEDS: FERROUS SULFATE 325 MG EC TABLET PO SCH ×3 (07:30→17:13)
[2021-05-14] MEDS: THIAMINE 100 MG TABLET PO SCH (08:08)
[2021-05-14] MEDS: MULTIVITAMINS WITH MINERALS, THERAPEUTIC TABLET PO SCH (08:08)
[2021-05-14] MEDS: FOLIC ACID 1 MG TABLET PO SCH (08:08)
[2021-05-14] MEDS: SERTRALINE HCL 100 MG TABLET PO SCH (08:08)
[2021-05-14 09:59] VITALS: BP 151/97
[2021-05-14 16:12] VITALS: BP 146/95
[2021-05-14] MEDS: ZOLPIDEM TARTRATE 10 MG TABLET PO PRN (20:44)
[2021-05-14] MEDS: QUEtiapine FUMARATE 200 MG TABLET PO SCH (20:44)
[2021-05-15 06:23] LABS: COVID AG,FIA SOURCE NASAL SWAB
[2021-05-15] MEDS: FERROUS SULFATE 325 MG EC TABLET PO SCH ×3 (06:45→16:36)
[2021-05-15 08:03] VITALS: BP 130/82
[2021-05-15] MEDS: THIAMINE 100 MG TABLET PO SCH (08:39)
[2021-05-15] MEDS: FOLIC ACID 1 MG TABLET PO SCH (08:39)
[2021-05-15] MEDS: SERTRALINE HCL 100 MG TABLET PO SCH (08:39)
[2021-05-15] MEDS: MULTIVITAMINS WITH MINERALS, THERAPEUTIC TABLET PO SCH (08:39)
[2021-05-15 16:11] VITALS: BP 138/91
[2021-05-15] MEDS: QUEtiapine FUMARATE 200 MG TABLET PO SCH (20:14)
[2021-05-15] MEDS: ZOLPIDEM TARTRATE 10 MG TABLET PO PRN (21:06)
[2021-05-16] MEDS: FERROUS SULFATE 325 MG EC TABLET PO SCH ×3 (06:59→16:30)
[2021-05-16] MEDS: THIAMINE 100 MG TABLET PO SCH (08:06)
[2021-05-16] MEDS: FOLIC ACID 1 MG TABLET PO SCH (08:08)
[2021-05-16] MEDS: MULTIVITAMINS WITH MINERALS, THERAPEUTIC TABLET PO SCH (08:08)
[2021-05-16] MEDS: SERTRALINE HCL 100 MG TABLET PO SCH (08:08)
[2021-05-16 09:10] VITALS: BP 154/82
[2021-05-16 16:08] VITALS: BP 154/86
[2021-05-16] MEDS: QUEtiapine FUMARATE 200 MG TABLET PO SCH (20:00)
[2021-05-16] MEDS: ZOLPIDEM TARTRATE 10 MG TABLET PO PRN (20:31)
[2021-05-17] MEDS: FERROUS SULFATE 325 MG EC TABLET PO SCH ×3 (06:34→16:30)
[2021-05-17] MEDS: MULTIVITAMINS WITH MINERALS, THERAPEUTIC TABLET PO SCH (08:13)
[2021-05-17] MEDS: THIAMINE 100 MG TABLET PO SCH (08:13)
[2021-05-17] MEDS: FOLIC ACID 1 MG TABLET PO SCH (08:14)
[2021-05-17] MEDS: SERTRALINE HCL 100 MG TABLET PO SCH (08:14)
[2021-05-17 08:44] VITALS: BP 154/112
[2021-05-17 17:47] VITALS: BP 123/71
[2021-05-17] MEDS: QUEtiapine FUMARATE 200 MG TABLET PO SCH (20:13)
[2021-05-17] MEDS: ZOLPIDEM TARTRATE 10 MG TABLET PO PRN (21:11)
[2021-05-18] MEDS: FERROUS SULFATE 325 MG EC TABLET PO SCH ×3 (06:38→16:55)
[2021-05-18 08:18] VITALS: BP 119/87
[2021-05-18] MEDS: THIAMINE 100 MG TABLET PO SCH (08:40)
[2021-05-18] MEDS: SERTRALINE HCL 100 MG TABLET PO SCH (08:40)
[2021-05-18] MEDS: MULTIVITAMINS WITH MINERALS, THERAPEUTIC TABLET PO SCH (08:40)
[2021-05-18] MEDS: FOLIC ACID 1 MG TABLET PO SCH (08:40)
[2021-05-18 16:11] VITALS: BP 132/72
[2021-05-18] MEDS: QUEtiapine FUMARATE 200 MG TABLET PO SCH (20:00)
[2021-05-18] MEDS: ZOLPIDEM TARTRATE 10 MG TABLET PO PRN (20:01)
[2021-05-19] MEDS: FERROUS SULFATE 325 MG EC TABLET PO SCH ×3 (06:43→16:40)
[2021-05-19 08:30] VITALS: BP 115/88
[2021-05-19] MEDS: MULTIVITAMINS WITH MINERALS, THERAPEUTIC TABLET PO SCH (09:09)
[2021-05-19] MEDS: LORazepam 2 MG TABLET PO PRN (09:53)
[2021-05-19] MEDS: FOLIC ACID 1 MG TABLET PO SCH (09:54)
[2021-05-19] MEDS: THIAMINE 100 MG TABLET PO SCH (09:54)
[2021-05-19] MEDS: SERTRALINE HCL 100 MG TABLET PO SCH (09:54)
[2021-05-19 17:35] VITALS: BP 124/78
[2021-05-19] MEDS: QUEtiapine FUMARATE 200 MG TABLET PO SCH (20:15)
[2021-05-19] MEDS: ZOLPIDEM TARTRATE 10 MG TABLET PO PRN (20:19)
[2021-05-20] MEDS: FERROUS SULFATE 325 MG EC TABLET PO SCH ×3 (06:37→16:42)
[2021-05-20] MEDS: MULTIVITAMINS WITH MINERALS, THERAPEUTIC TABLET PO SCH (08:24)
[2021-05-20] MEDS: FOLIC ACID 1 MG TABLET PO SCH (08:24)
[2021-05-20] MEDS: THIAMINE 100 MG TABLET PO SCH (08:25)
[2021-05-20] MEDS: SERTRALINE HCL 100 MG TABLET PO SCH (08:26)
[2021-05-20 08:51] VITALS: BP 136/84
[2021-05-20 16:37] VITALS: BP 143/90
[2021-05-20] MEDS: QUEtiapine FUMARATE 200 MG TABLET PO SCH (20:15)
[2021-05-21] MEDS: FERROUS SULFATE 325 MG EC TABLET PO SCH ×3 (06:51→16:34)
[2021-05-21] MEDS: THIAMINE 100 MG TABLET PO SCH (10:17)
[2021-05-21] MEDS: SERTRALINE HCL 100 MG TABLET PO SCH (10:17)
[2021-05-21] MEDS: MULTIVITAMINS WITH MINERALS, THERAPEUTIC TABLET PO SCH (10:17)
[2021-05-21] MEDS: FOLIC ACID 1 MG TABLET PO SCH (10:18)
[2021-05-21 10:19] VITALS: BP 134/75
[2021-05-21 16:38] VITALS: BP 135/80
[2021-05-21] MEDS: QUEtiapine FUMARATE 200 MG TABLET PO SCH (20:15)
[2021-05-21] MEDS: ZOLPIDEM TARTRATE 10 MG TABLET PO PRN (21:00)
[2021-05-22] MEDS: FERROUS SULFATE 325 MG EC TABLET PO SCH ×3 (06:42→16:34)
[2021-05-22 08:15] VITALS: BP 139/95
[2021-05-22] MEDS: MULTIVITAMINS WITH MINERALS, THERAPEUTIC TABLET PO SCH (08:50)
[2021-05-22] MEDS: FOLIC ACID 1 MG TABLET PO SCH (08:50)
[2021-05-22] MEDS: SERTRALINE HCL 100 MG TABLET PO SCH (08:51)
[2021-05-22] MEDS: THIAMINE 100 MG TABLET PO SCH (08:51)
[2021-05-22 10:17] LABS: COVID AG,FIA SOURCE NASOPHARYNGEAL
[2021-05-22 16:14] VITALS: BP 140/92
[2021-05-22] MEDS: QUEtiapine FUMARATE 200 MG TABLET PO SCH (20:14)
[2021-05-22] MEDS: ZOLPIDEM TARTRATE 10 MG TABLET PO PRN (21:08)
[2021-05-23] MEDS: FERROUS SULFATE 325 MG EC TABLET PO SCH ×3 (06:47→17:14)
[2021-05-23 09:00] VITALS: BP 132/81
[2021-05-23] MEDS: MULTIVITAMINS WITH MINERALS, THERAPEUTIC TABLET PO SCH (09:22)
[2021-05-23] MEDS: SERTRALINE HCL 100 MG TABLET PO SCH (09:22)
[2021-05-23] MEDS: FOLIC ACID 1 MG TABLET PO SCH (09:22)
[2021-05-23] MEDS: THIAMINE 100 MG TABLET PO SCH (09:27)
[2021-05-23] MEDS ORDERED: TraZODone HCL 50 MG TABLET PO PRN (14:15)
[2021-05-23 16:08] VITALS: BP 149/89
[2021-05-23] MEDS: QUEtiapine FUMARATE 200 MG TABLET PO SCH (20:32)
[2021-05-24] MEDS: FERROUS SULFATE 325 MG EC TABLET PO SCH ×3 (06:53→16:16)
[2021-05-24 08:00] VITALS: BP 144/87
[2021-05-24] MEDS: MULTIVITAMINS WITH MINERALS, THERAPEUTIC TABLET PO SCH (09:19)
[2021-05-24] MEDS: SERTRALINE HCL 100 MG TABLET PO SCH (09:19)
[2021-05-24] MEDS: THIAMINE 100 MG TABLET PO SCH (09:19)
[2021-05-24] MEDS: FOLIC ACID 1 MG TABLET PO SCH (09:19)
[2021-05-24 16:27] VITALS: BP 140/84
[2021-05-24] MEDS: QUEtiapine FUMARATE 200 MG TABLET PO SCH (20:06)
[2021-05-24] MEDS: TraZODone HCL 50 MG TABLET PO PRN (21:05)
[2021-05-25] MEDS: FERROUS SULFATE 325 MG EC TABLET PO SCH ×3 (06:48→16:11)
[2021-05-25 08:00] VITALS: BP 105/60
[2021-05-25] MEDS: MULTIVITAMINS WITH MINERALS, THERAPEUTIC TABLET PO SCH (08:13)
[2021-05-25] MEDS: THIAMINE 100 MG TABLET PO SCH (08:13)
[2021-05-25] MEDS: FOLIC ACID 1 MG TABLET PO SCH (08:14)
[2021-05-25] MEDS: SERTRALINE HCL 100 MG TABLET PO SCH (08:14)
[2021-05-25 16:00] VITALS: BP 124/80
[2021-05-25] MEDS: QUEtiapine FUMARATE 200 MG TABLET PO SCH (20:01)
[2021-05-26] MEDS: FERROUS SULFATE 325 MG EC TABLET PO SCH ×3 (06:56→16:14)
[2021-05-26 08:00] VITALS: BP 130/78
[2021-05-26] MEDS: SERTRALINE HCL 100 MG TABLET PO SCH (08:26)
[2021-05-26] MEDS: MULTIVITAMINS WITH MINERALS, THERAPEUTIC TABLET PO SCH (08:26)
[2021-05-26] MEDS: FOLIC ACID 1 MG TABLET PO SCH (08:26)
[2021-05-26] MEDS: THIAMINE 100 MG TABLET PO SCH (08:26)
[2021-05-26 16:20] VITALS: BP 141/88
[2021-05-26] MEDS: QUEtiapine FUMARATE 200 MG TABLET PO SCH (20:02)
[2021-05-27] MEDS: FERROUS SULFATE 325 MG EC TABLET PO SCH ×3 (06:51→16:02)
[2021-05-27] MEDS: THIAMINE 100 MG TABLET PO SCH (08:23)
[2021-05-27] MEDS: SERTRALINE HCL 100 MG TABLET PO SCH (08:23)
[2021-05-27] MEDS: FOLIC ACID 1 MG TABLET PO SCH (08:23)
[2021-05-27] MEDS: MULTIVITAMINS WITH MINERALS, THERAPEUTIC TABLET PO SCH (08:24)
[2021-05-27 16:30] VITALS: BP 130/81
[2021-05-27] MEDS: QUEtiapine FUMARATE 200 MG TABLET PO SCH (20:10)
[2021-05-27] MEDS: TraZODone HCL 50 MG TABLET PO PRN (21:03)
[2021-05-28] MEDS: FERROUS SULFATE 325 MG EC TABLET PO SCH ×3 (06:38→17:10)
[2021-05-28 08:00] VITALS: BP 101/55
[2021-05-28] MEDS: MULTIVITAMINS WITH MINERALS, THERAPEUTIC TABLET PO SCH (08:09)
[2021-05-28] MEDS: FOLIC ACID 1 MG TABLET PO SCH (08:09)
[2021-05-28] MEDS: SERTRALINE HCL 100 MG TABLET PO SCH (08:09)
[2021-05-28] MEDS: THIAMINE 100 MG TABLET PO SCH (08:09)
[2021-05-28 16:00] VITALS: BP 123/87
[2021-05-28] MEDS: HALOPERIDOL 5 MG TABLET PO PRN (17:10)
[2021-05-28] MEDS: TraZODone HCL 50 MG TABLET PO PRN (21:13)
[2021-05-28] MEDS: QUEtiapine FUMARATE 200 MG TABLET PO SCH (21:13)
[2021-05-29] MEDS: FERROUS SULFATE 325 MG EC TABLET PO SCH ×3 (06:53→16:03)
[2021-05-29 07:01] LABS: CALCIUM, TOTAL 8.4 mg/dL (8.8-10.5); CREATININE 1.59 mg/dL (0.60-1.30); POTASSIUM 4.9 mmol/L (3.5-5.1)
[2021-05-29] MEDS: SERTRALINE HCL 100 MG TABLET PO SCH (08:04)
[2021-05-29] MEDS: FOLIC ACID 1 MG TABLET PO SCH (08:04)
[2021-05-29] MEDS: THIAMINE 100 MG TABLET PO SCH (08:04)
[2021-05-29] MEDS: MULTIVITAMINS WITH MINERALS, THERAPEUTIC TABLET PO SCH (08:04)
[2021-05-29 09:02] VITALS: BP 136/100
[2021-05-29 14:51] LABS: COVID AG,FIA SOURCE NASOPHARYNGEAL
[2021-05-29 16:00] VITALS: BP 140/75
[2021-05-29] MEDS: QUEtiapine FUMARATE 200 MG TABLET PO SCH (20:05)
[2021-05-30] MEDS: FERROUS SULFATE 325 MG EC TABLET PO SCH ×3 (06:46→16:05)
[2021-05-30 08:30] VITALS: BP 137/100
[2021-05-30] MEDS: SERTRALINE HCL 100 MG TABLET PO SCH (08:43)
[2021-05-30] MEDS: MULTIVITAMINS WITH MINERALS, THERAPEUTIC TABLET PO SCH (08:44)
[2021-05-30] MEDS: THIAMINE 100 MG TABLET PO SCH (08:44)
[2021-05-30] MEDS: FOLIC ACID 1 MG TABLET PO SCH (08:44)
[2021-05-30 16:10] VITALS: BP 146/91
[2021-05-30] MEDS: QUEtiapine FUMARATE 200 MG TABLET PO SCH (20:04)
[2021-05-30] MEDS: TraZODone HCL 50 MG TABLET PO PRN (21:01)
[2021-05-31] MEDS: FERROUS SULFATE 325 MG EC TABLET PO SCH ×3 (06:46→16:01)
[2021-05-31 08:51] VITALS: BP 139/83
[2021-05-31] MEDS: SERTRALINE HCL 100 MG TABLET PO SCH (09:11)
[2021-05-31] MEDS: MULTIVITAMINS WITH MINERALS, THERAPEUTIC TABLET PO SCH (09:11)
[2021-05-31] MEDS: FOLIC ACID 1 MG TABLET PO SCH (09:11)
[2021-05-31] MEDS: THIAMINE 100 MG TABLET PO SCH (09:11)
[2021-05-31 17:18] VITALS: BP 141/81
[2021-05-31] MEDS: QUEtiapine FUMARATE 200 MG TABLET PO SCH (20:03)
[2021-06-01] MEDS: FERROUS SULFATE 325 MG EC TABLET PO SCH ×3 (06:46→17:08)
[2021-06-01 08:00] VITALS: BP 117/68
[2021-06-01] MEDS: SERTRALINE HCL 100 MG TABLET PO SCH (08:58)
[2021-06-01] MEDS: MULTIVITAMINS WITH MINERALS, THERAPEUTIC TABLET PO SCH (08:58)
[2021-06-01] MEDS: THIAMINE 100 MG TABLET PO SCH (08:58)
[2021-06-01] MEDS: FOLIC ACID 1 MG TABLET PO SCH (08:58)
[2021-06-01 16:55] VITALS: BP 149/81
[2021-06-01] MEDS: QUEtiapine FUMARATE 200 MG TABLET PO SCH (20:01)
[2021-06-02] MEDS: FERROUS SULFATE 325 MG EC TABLET PO SCH ×3 (06:38→16:39)
[2021-06-02 08:00] VITALS: BP 126/75
[2021-06-02] MEDS: FOLIC ACID 1 MG TABLET PO SCH (08:37)
[2021-06-02] MEDS: MULTIVITAMINS WITH MINERALS, THERAPEUTIC TABLET PO SCH (08:37)
[2021-06-02] MEDS: THIAMINE 100 MG TABLET PO SCH (08:37)
[2021-06-02] MEDS: SERTRALINE HCL 100 MG TABLET PO SCH (08:37)
[2021-06-02 16:22] VITALS: BP 123/78
[2021-06-02] MEDS: QUEtiapine FUMARATE 200 MG TABLET PO SCH (20:19)
[2021-06-03] MEDS: FERROUS SULFATE 325 MG EC TABLET PO SCH ×3 (06:58→16:14)
[2021-06-03 08:00] VITALS: BP 140/68
[2021-06-03] MEDS: FOLIC ACID 1 MG TABLET PO SCH (08:24)
[2021-06-03] MEDS: MULTIVITAMINS WITH MINERALS, THERAPEUTIC TABLET PO SCH (08:24)
[2021-06-03] MEDS: THIAMINE 100 MG TABLET PO SCH (08:24)
[2021-06-03] MEDS: SERTRALINE HCL 100 MG TABLET PO SCH (08:24)
[2021-06-03 16:13] VITALS: BP 146/97
[2021-06-03] MEDS: QUEtiapine FUMARATE 200 MG TABLET PO SCH (20:33)
[2021-06-04] MEDS: FERROUS SULFATE 325 MG EC TABLET PO SCH ×3 (06:49→16:25)
[2021-06-04 08:00] VITALS: BP 143/94
[2021-06-04] MEDS: MULTIVITAMINS WITH MINERALS, THERAPEUTIC TABLET PO SCH (08:41)
[2021-06-04] MEDS: FOLIC ACID 1 MG TABLET PO SCH (08:41)
[2021-06-04] MEDS: SERTRALINE HCL 100 MG TABLET PO SCH (08:41)
[2021-06-04] MEDS: THIAMINE 100 MG TABLET PO SCH (08:41)
[2021-06-04 16:00] VITALS: BP 150/99
[2021-06-04] MEDS: QUEtiapine FUMARATE 200 MG TABLET PO SCH (20:27)
[2021-06-04] MEDS: TraZODone HCL 50 MG TABLET PO PRN (21:37)
[2021-06-05] MEDS: FERROUS SULFATE 325 MG EC TABLET PO SCH ×3 (06:52→16:03)
[2021-06-05 08:00] VITALS: BP 133/67
[2021-06-05] MEDS: SERTRALINE HCL 100 MG TABLET PO SCH (08:17)
[2021-06-05] MEDS: FOLIC ACID 1 MG TABLET PO SCH (08:17)
[2021-06-05] MEDS: MULTIVITAMINS WITH MINERALS, THERAPEUTIC TABLET PO SCH (08:17)
[2021-06-05] MEDS: THIAMINE 100 MG TABLET PO SCH (08:17)
[2021-06-05 16:00] VITALS: BP 33/76
[2021-06-05] MEDS: QUEtiapine FUMARATE 200 MG TABLET PO SCH (20:02)
[2021-06-05 21:05] LABS: COVID AG,FIA SOURCE NASAL SWAB
[2021-06-06] MEDS: FERROUS SULFATE 325 MG EC TABLET PO SCH ×3 (06:54→16:37)
[2021-06-06 08:05] VITALS: BP 151/89
[2021-06-06] MEDS: MULTIVITAMINS WITH MINERALS, THERAPEUTIC TABLET PO SCH (08:40)
[2021-06-06] MEDS: THIAMINE 100 MG TABLET PO SCH (08:40)
[2021-06-06] MEDS: FOLIC ACID 1 MG TABLET PO SCH (08:40)
[2021-06-06] MEDS: SERTRALINE HCL 100 MG TABLET PO SCH (08:41)
[2021-06-06 16:30] VITALS: BP 148/85
[2021-06-06] MEDS: QUEtiapine FUMARATE 200 MG TABLET PO SCH (20:03)
[2021-06-07] MEDS: FERROUS SULFATE 325 MG EC TABLET PO SCH ×3 (06:36→16:40)
[2021-06-07 08:10] VITALS: BP 156/97
[2021-06-07] MEDS: THIAMINE 100 MG TABLET PO SCH (09:25)
[2021-06-07] MEDS: SERTRALINE HCL 100 MG TABLET PO SCH (09:25)
[2021-06-07] MEDS: MULTIVITAMINS WITH MINERALS, THERAPEUTIC TABLET PO SCH (09:25)
[2021-06-07] MEDS: FOLIC ACID 1 MG TABLET PO SCH (09:25)
[2021-06-07 16:58] VITALS: BP 129/74
[2021-06-07] MEDS: QUEtiapine FUMARATE 200 MG TABLET PO SCH (20:36)
[2021-06-07] MEDS: TraZODone HCL 50 MG TABLET PO PRN (20:45)
[2021-06-08] MEDS: FERROUS SULFATE 325 MG EC TABLET PO SCH ×3 (06:47→16:05)
[2021-06-08 08:00] VITALS: BP 143/95
[2021-06-08] MEDS: SERTRALINE HCL 100 MG TABLET PO SCH (08:30)
[2021-06-08] MEDS: THIAMINE 100 MG TABLET PO SCH (08:30)
[2021-06-08] MEDS: FOLIC ACID 1 MG TABLET PO SCH (08:30)
[2021-06-08] MEDS: MULTIVITAMINS WITH MINERALS, THERAPEUTIC TABLET PO SCH (08:30)
[2021-06-08 16:50] VITALS: BP 111/79
[2021-06-08] MEDS: QUEtiapine FUMARATE 200 MG TABLET PO SCH (20:12)
[2021-06-09] MEDS: FERROUS SULFATE 325 MG EC TABLET PO SCH ×3 (06:35→16:55)
[2021-06-09 08:02] VITALS: BP 148/89
[2021-06-09] MEDS: THIAMINE 100 MG TABLET PO SCH (08:09)
[2021-06-09] MEDS: SERTRALINE HCL 100 MG TABLET PO SCH (08:09)
[2021-06-09] MEDS: FOLIC ACID 1 MG TABLET PO SCH (08:09)
[2021-06-09] MEDS: MULTIVITAMINS WITH MINERALS, THERAPEUTIC TABLET PO SCH (08:09)
[2021-06-09 16:26] VITALS: BP 154/90
[2021-06-09] MEDS: QUEtiapine FUMARATE 200 MG TABLET PO SCH (20:23)
[2021-06-09] MEDS: TraZODone HCL 50 MG TABLET PO PRN (20:23)
[2021-06-10] MEDS: FERROUS SULFATE 325 MG EC TABLET PO SCH ×3 (06:36→16:45)
[2021-06-10 08:00] VITALS: BP 154/95
[2021-06-10] MEDS: SERTRALINE HCL 100 MG TABLET PO SCH (08:25)
[2021-06-10] MEDS: FOLIC ACID 1 MG TABLET PO SCH (08:25)
[2021-06-10] MEDS: THIAMINE 100 MG TABLET PO SCH (08:25)
[2021-06-10] MEDS: MULTIVITAMINS WITH MINERALS, THERAPEUTIC TABLET PO SCH (08:25)
[2021-06-10 16:17] VITALS: BP 157/88
[2021-06-10] MEDS: TraZODone HCL 50 MG TABLET PO PRN (20:07)
[2021-06-10] MEDS: QUEtiapine FUMARATE 200 MG TABLET PO SCH (20:07)
[2021-06-11] MEDS: FERROUS SULFATE 325 MG EC TABLET PO SCH ×3 (06:50→16:46)
[2021-06-11] MEDS: FOLIC ACID 1 MG TABLET PO SCH (08:10)
[2021-06-11] MEDS: MULTIVITAMINS WITH MINERALS, THERAPEUTIC TABLET PO SCH (08:11)
[2021-06-11] MEDS: SERTRALINE HCL 100 MG TABLET PO SCH (08:11)
[2021-06-11] MEDS: THIAMINE 100 MG TABLET PO SCH (08:11)
[2021-06-11 08:53] VITALS: BP 146/93
[2021-06-11 16:13] VITALS: BP 130/80
[2021-06-11] MEDS: QUEtiapine FUMARATE 200 MG TABLET PO SCH (20:09)
[2021-06-11] MEDS: TraZODone HCL 50 MG TABLET PO PRN (21:12)
[2021-06-12] MEDS: FERROUS SULFATE 325 MG EC TABLET PO SCH ×3 (07:06→17:40)
[2021-06-12] MEDS: FOLIC ACID 1 MG TABLET PO SCH (08:01)
[2021-06-12] MEDS: THIAMINE 100 MG TABLET PO SCH (08:01)
[2021-06-12] MEDS: MULTIVITAMINS WITH MINERALS, THERAPEUTIC TABLET PO SCH (08:01)
[2021-06-12] MEDS: SERTRALINE HCL 100 MG TABLET PO SCH (08:01)
[2021-06-12 09:01] VITALS: BP 148/95
[2021-06-12 10:25] LABS: COVID AG,FIA SOURCE NASOPHARYNGEAL
[2021-06-12 16:42] VITALS: BP 152/80
[2021-06-12] MEDS: QUEtiapine FUMARATE 200 MG TABLET PO SCH (20:14)
[2021-06-12] MEDS: TraZODone HCL 50 MG TABLET PO PRN (20:14)
[2021-06-13] MEDS: FERROUS SULFATE 325 MG EC TABLET PO SCH ×3 (06:31→16:52)
[2021-06-13] MEDS: MULTIVITAMINS WITH MINERALS, THERAPEUTIC TABLET PO SCH (08:10)
[2021-06-13] MEDS: THIAMINE 100 MG TABLET PO SCH (08:10)
[2021-06-13] MEDS: FOLIC ACID 1 MG TABLET PO SCH (08:10)
[2021-06-13] MEDS: SERTRALINE HCL 100 MG TABLET PO SCH (08:10)
[2021-06-13 09:51] VITALS: BP 143/83
[2021-06-13 16:00] VITALS: BP 137/95
[2021-06-13 16:49] VITALS: BP 137/95
[2021-06-13] MEDS: TraZODone HCL 50 MG TABLET PO PRN (20:12)
[2021-06-13] MEDS: QUEtiapine FUMARATE 200 MG TABLET PO SCH (20:12)
[2021-06-14] MEDS: FERROUS SULFATE 325 MG EC TABLET PO SCH ×3 (06:37→16:47)
[2021-06-14] MEDS: FOLIC ACID 1 MG TABLET PO SCH (08:04)
[2021-06-14] MEDS: SERTRALINE HCL 100 MG TABLET PO SCH (08:04)
[2021-06-14] MEDS: THIAMINE 100 MG TABLET PO SCH (08:04)
[2021-06-14] MEDS: MULTIVITAMINS WITH MINERALS, THERAPEUTIC TABLET PO SCH (08:04)
[2021-06-14 09:00] VITALS: BP 157/93
[2021-06-14 16:39] VITALS: BP 130/72
[2021-06-14] MEDS: TraZODone HCL 50 MG TABLET PO PRN (20:46)
[2021-06-14] MEDS: QUEtiapine FUMARATE 200 MG TABLET PO SCH (21:06)
[2021-06-15] MEDS: FERROUS SULFATE 325 MG EC TABLET PO SCH ×3 (06:41→16:52)
[2021-06-15 08:00] VITALS: BP 158/71
[2021-06-15] MEDS: THIAMINE 100 MG TABLET PO SCH (08:56)
[2021-06-15] MEDS: MULTIVITAMINS WITH MINERALS, THERAPEUTIC TABLET PO SCH (08:56)
[2021-06-15] MEDS: SERTRALINE HCL 100 MG TABLET PO SCH (08:57)
[2021-06-15] MEDS: FOLIC ACID 1 MG TABLET PO SCH (08:57)
[2021-06-15 16:54] VITALS: BP 121/70
[2021-06-15] MEDS: QUEtiapine FUMARATE 200 MG TABLET PO SCH (20:09)
[2021-06-15] MEDS: TraZODone HCL 50 MG TABLET PO PRN (20:11)
[2021-06-16] MEDS: FERROUS SULFATE 325 MG EC TABLET PO SCH ×3 (06:41→16:43)
[2021-06-16 08:57] VITALS: BP 129/83
[2021-06-16] MEDS: THIAMINE 100 MG TABLET PO SCH (09:08)
[2021-06-16] MEDS: SERTRALINE HCL 100 MG TABLET PO SCH (09:08)
[2021-06-16] MEDS: MULTIVITAMINS WITH MINERALS, THERAPEUTIC TABLET PO SCH (09:08)
[2021-06-16] MEDS: FOLIC ACID 1 MG TABLET PO SCH (09:08)
[2021-06-16 16:48] VITALS: BP 147/99
[2021-06-16] MEDS: QUEtiapine FUMARATE 200 MG TABLET PO SCH (20:38)
[2021-06-16] MEDS: TraZODone HCL 50 MG TABLET PO PRN (20:50)
[2021-06-17] MEDS: FERROUS SULFATE 325 MG EC TABLET PO SCH ×3 (06:45→16:05)
[2021-06-17 08:05] VITALS: BP 153/80
[2021-06-17] MEDS: MULTIVITAMINS WITH MINERALS, THERAPEUTIC TABLET PO SCH (08:58)
[2021-06-17] MEDS: THIAMINE 100 MG TABLET PO SCH (08:58)
[2021-06-17] MEDS: SERTRALINE HCL 100 MG TABLET PO SCH (08:58)
[2021-06-17] MEDS: FOLIC ACID 1 MG TABLET PO SCH (08:58)
[2021-06-17 17:05] VITALS: BP 146/87
[2021-06-17] MEDS: QUEtiapine FUMARATE 200 MG TABLET PO SCH (20:09)
[2021-06-17] MEDS: TraZODone HCL 50 MG TABLET PO PRN (21:03)
[2021-06-18] MEDS: FERROUS SULFATE 325 MG EC TABLET PO SCH ×3 (06:52→16:45)
[2021-06-18] MEDS: SERTRALINE HCL 100 MG TABLET PO SCH (08:57)
[2021-06-18] MEDS: MULTIVITAMINS WITH MINERALS, THERAPEUTIC TABLET PO SCH (08:57)
[2021-06-18] MEDS: THIAMINE 100 MG TABLET PO SCH (08:57)
[2021-06-18] MEDS: FOLIC ACID 1 MG TABLET PO SCH (08:57)
[2021-06-18 09:26] VITALS: BP 140/96
[2021-06-18 17:38] VITALS: BP 157/72
[2021-06-18] MEDS: TraZODone HCL 50 MG TABLET PO PRN (20:10)
[2021-06-18] MEDS: QUEtiapine FUMARATE 200 MG TABLET PO SCH (20:10)
[2021-06-19] MEDS: FERROUS SULFATE 325 MG EC TABLET PO SCH ×3 (06:32→16:11)
[2021-06-19] MEDS: THIAMINE 100 MG TABLET PO SCH (08:19)
[2021-06-19] MEDS: MULTIVITAMINS WITH MINERALS, THERAPEUTIC TABLET PO SCH (08:19)
[2021-06-19] MEDS: FOLIC ACID 1 MG TABLET PO SCH (08:19)
[2021-06-19] MEDS: SERTRALINE HCL 100 MG TABLET PO SCH (08:20)
[2021-06-19 08:47] VITALS: BP 150/95
[2021-06-19 11:51] LABS: COVID AG,FIA SOURCE NASAL SWAB
[2021-06-19 16:00] VITALS: BP 141/81
[2021-06-19] MEDS: QUEtiapine FUMARATE 200 MG TABLET PO SCH (20:12)
[2021-06-19] MEDS: TraZODone HCL 50 MG TABLET PO PRN (21:27)
[2021-06-20] MEDS: FERROUS SULFATE 325 MG EC TABLET PO SCH ×3 (06:47→17:05)
[2021-06-20] MEDS: FOLIC ACID 1 MG TABLET PO SCH (08:43)
[2021-06-20] MEDS: MULTIVITAMINS WITH MINERALS, THERAPEUTIC TABLET PO SCH (08:43)
[2021-06-20] MEDS: THIAMINE 100 MG TABLET PO SCH (08:43)
[2021-06-20] MEDS: SERTRALINE HCL 100 MG TABLET PO SCH (08:44)
[2021-06-20 08:47] VITALS: BP 136/85
[2021-06-20 16:54] VITALS: BP 134/75
[2021-06-20] MEDS: HALOPERIDOL 5 MG TABLET PO PRN (17:05)
[2021-06-20] MEDS: QUEtiapine FUMARATE 200 MG TABLET PO SCH (20:00)
[2021-06-20] MEDS: TraZODone HCL 50 MG TABLET PO PRN (20:23)
[2021-06-21] MEDS: FERROUS SULFATE 325 MG EC TABLET PO SCH ×2 (06:49→12:36)
[2021-06-21 08:32] VITALS: BP 153/108
[2021-06-21] MEDS: SERTRALINE HCL 100 MG TABLET PO SCH (09:06)
[2021-06-21] MEDS: FOLIC ACID 1 MG TABLET PO SCH (09:06)
[2021-06-21] MEDS: MULTIVITAMINS WITH MINERALS, THERAPEUTIC TABLET PO SCH (09:10)
[2021-06-21] MEDS: THIAMINE 100 MG TABLET PO SCH (09:10)
[2021-06-21] MEDS ORDERED: THIA100T80 PO (13:38)
[2021-06-21] MEDS ORDERED: SERT-440 PO (13:38)
[2021-06-21] MEDS ORDERED: QUET200T30 PO (13:38)
== END 2021-06-21 16:00 | disposition home or self-care (01) | DRG 750 ==
LOC: EMS 16:27 → 3EI 05-02 01:00
PROVIDERS: ADMIT Psychiatry & Neurology Child & Adolescent Psychiatry; ATTEND Psychiatry & Neurology Child & Adolescent Psychiatry
DX: F25.1 Schizoaffective disorder, depressive type (principal); N17.9 Acute kidney failure, unspecified; K74.60 Unspecified cirrhosis of liver; R45.851 Suicidal ideations; D64.9 Anemia, unspecified; F41.9 Anxiety disorder, unspecified; Z20.822 Contact with and (suspected) exposure to COVID-19; F17.210 Nicotine dependence, cigarettes, uncomplicated; F10.10 Alcohol abuse, uncomplicated; F31.9 Bipolar disorder, unspecified; Z59.00 Homelessness unspecified
CPT/HCPCS: 80048; 80053; 85025; 87081; 90732; 99285; G0480

== ENCOUNTER 2021-07-06 02:46 | Emergency (ER) | payer MEDICAID ==
[~2021-07-06] VITALS: Ht 170.2 cm; Wt 75.0 kg
[~2021-07-06 02:46] MED LIST changes: +THIA100T80 PO
[2021-07-06 03:36] LABS: BASOPHILS % (AUTO) 0.3 % (0.0-2.0); EOSINOPHILS % (AUTO) 0 % (1.0-6.0); HEMATOCRIT 37.2 % (41-53); HEMOGLOBIN 12.6 g/dL (13.5-17.5); LYMPHOCYTES # (AUTO) 0.8 K/uL (1.0-4.8); LYMPHOCYTES % (AUTO) 5.9 % (22.0-44.0); MEAN CORPUSCULAR HEMOGLOBIN 29.2 pg (26.0-34.0); MEAN CORPUSCULAR HGB CONC 33.8 G/dL (31.0-37.0); MEAN CORPUSCULAR VOLUME 87 fL (80-100); MONOCYTES # (AUTO) 1.2 K/uL (0.1-1.0); MONOCYTES % (AUTO) 8.8 % (2.0-9.0); PLATELET COUNT (AUTO) 249 K/uL (150-450); RED BLOOD CELL COUNT(AUTO) 4.29 MIL/uL (4.50-5.90); RED CELL DISTRIBUTION WIDTH 15.4 % (11.5-14.5)
[2021-07-06 03:45] LABS: ANION GAP 15 mmol/L (8-16); CALCIUM, TOTAL 9.5 mg/dL (8.8-10.5); CARBON DIOXIDE 26 mmol/L (22-29); CHLORIDE 105 mmol/L (98-107); CREATININE 3.85 mg/dL (0.60-1.30); GLOMERULAR FILTR. RATE CALC 16 mL/min (>60); GLUCOSE,RANDOM 123 mg/dL (70-110); POTASSIUM 4.5 mmol/L (3.5-5.1); SODIUM SERUM 146 mmol/L (136-145); UREA NITROGEN, BLOOD 38 mg/dL (7-18)
[2021-07-06 03:50] LABS: ALANINE AMINOTRANSFERASE 32 U/L (12-78); ALBUMIN 3.8 g/dL (3.4-5.0); ALKALINE PHOSPHATASE 96 U/L (46-116); ASPARTATE AMINOTRANSFERASE 30 U/L (15-37); BILIRUBIN,TOTAL 0.6 mg/dL (0.1-1.0); TOTAL PROTEIN, SERUM 9.8 g/dL (6.4-8.2)
[2021-07-06 04:03] LABS: B-TYPE NATRIURETIC PEPTIDE 191 pg/mL (0-100)
[2021-07-06] MEDS ORDERED: HALOPERIDOL 5 MG TABLET PO ONE (05:30)
[2021-07-06 06:10] VITALS: BP 141/71
[2021-07-07] MEDS ORDERED: SERT-440 PO (12:05)
[2021-07-07] MEDS ORDERED: QUET200T30 PO (12:05)
== END 2021-07-06 06:45 | disposition home or self-care (01) ==
LOC: EMS 02:47
DX: F24 Shared psychotic disorder (principal); N17.9 Acute kidney failure, unspecified; N18.9 Chronic kidney disease, unspecified; F41.9 Anxiety disorder, unspecified; F31.9 Bipolar disorder, unspecified; F20.9 Schizophrenia, unspecified; F17.210 Nicotine dependence, cigarettes, uncomplicated; F19.90 Other psychoactive substance use, unspecified, uncomplicated
CPT/HCPCS: 36415; 71045; 80053; 83880; 84484; 85025; 93005; 99285; G0480

== ENCOUNTER 2021-07-06 22:13 | Inpatient (IN) | payer MEDICAID ==
[~2021-07-06] VITALS: Ht 172.7 cm; Wt 85.8 kg
[2021-07-07] MEDS ORDERED: LORazepam 1 MG TABLET PO ONE (00:45)
[2021-07-07] MEDS ORDERED: HALOPERIDOL 5 MG TABLET PO ONE (00:45)
[2021-07-07 00:47] LABS: BASOPHILS % (AUTO) 0.7 % (0.0-2.0); EOSINOPHILS % (AUTO) 1.1 % (1.0-6.0); HEMATOCRIT 37.2 % (41-53); HEMOGLOBIN 12.2 g/dL (13.5-17.5); LYMPHOCYTES # (AUTO) 2.1 K/uL (1.0-4.8); LYMPHOCYTES % (AUTO) 18.4 % (22.0-44.0); MEAN CORPUSCULAR HGB CONC 32.9 G/dL (31.0-37.0); MEAN CORPUSCULAR VOLUME 88 fL (80-100); MONOCYTES # (AUTO) 1.1 K/uL (0.1-1.0); MONOCYTES % (AUTO) 9.6 % (2.0-9.0); NEUTROPHILS # (AUTO) 7.9 K/uL (1.8-7.7); NEUTROPHILS % (AUTO) 70.2 % (40.0-70.0); PLATELET COUNT (AUTO) 236 K/uL (150-450); RED BLOOD CELL COUNT(AUTO) 4.22 MIL/uL (4.50-5.90); RED CELL DISTRIBUTION WIDTH 15.4 % (11.5-14.5)
[2021-07-07 00:52] LABS: ANION GAP 11 mmol/L (8-16); CALCIUM, TOTAL 9.1 mg/dL (8.8-10.5); CARBON DIOXIDE 27 mmol/L (22-29); CHLORIDE 102 mmol/L (98-107); CREATININE 3.17 mg/dL (0.60-1.30); GLOMERULAR FILTR. RATE CALC 20 mL/min (>60); GLUCOSE,RANDOM 116 mg/dL (70-110); POTASSIUM 3.7 mmol/L (3.5-5.1); SODIUM SERUM 140 mmol/L (136-145); UREA NITROGEN, BLOOD 51 mg/dL (7-18)
[2021-07-07 00:58] LABS: ALANINE AMINOTRANSFERASE 30 U/L (12-78); ALBUMIN 3.7 g/dL (3.4-5.0); ALKALINE PHOSPHATASE 97 U/L (46-116); ASPARTATE AMINOTRANSFERASE 29 U/L (15-37); BILIRUBIN,TOTAL 0.8 mg/dL (0.1-1.0); TOTAL PROTEIN, SERUM 9.6 g/dL (6.4-8.2)
[2021-07-07] MEDS ORDERED: HALOPERIDOL 5 MG TABLET PO PRN (01:15)
[2021-07-07] MEDS ORDERED: LORazepam 2 MG TABLET PO PRN (01:15)
[2021-07-07 01:46] LABS: COVID AG,FIA SOURCE NASAL SWAB
[2021-07-07 02:57] VITALS: BP 105/72
[2021-07-07 08:45] VITALS: BP 97/70
[2021-07-07] MEDS ORDERED: PETROLATUM,WHITE 28 GM JELLY TP PRN (10:30)
[2021-07-07] MEDS ORDERED: MAGNESIUM HYDROXIDE SUSPENSION 30 ML UDCUP PO PRN (10:30)
[2021-07-07] MEDS ORDERED: ALBUTEROL SULFATE HFA 90 MCG/PUFF 8 GM INHALER IH PRN (10:30)
[2021-07-07] MEDS ORDERED: IBUPROFEN 400 MG TABLET PO PRN (10:30)
[2021-07-07] MEDS ORDERED: ACETAMINOPHEN 325 MG TABLET PO PRN (10:30)
[2021-07-07] MEDS ORDERED: CloNIDine HCL 0.1 MG TABLET PO PRN (10:30)
[2021-07-07] MEDS ORDERED: DOCUSATE SODIUM 100 MG CAPSULE PO PRN (10:30)
[2021-07-07] MEDS ORDERED: MAG HYDROX/AL HYDROX/SIMETH ES 30 ML SUSPENSION UDCUP PO PRN (10:30)
[2021-07-07] MEDS ORDERED: LOPERAMIDE HCL 2 MG CAPSULE PO PRN (10:30)
[2021-07-07] MEDS ORDERED: NICOTINE 14 MG/24 HOUR PATCH TD PRN (10:30)
[2021-07-07] MEDS ORDERED: ONDANSETRON HCL 4 MG TABLET PO PRN (10:30)
[2021-07-07] MEDS ORDERED: GuaiFENesin/D-METHORPHAN [SUGAR-FREE] 200-20MG/10 ML SYRUP UDCUP PO PRN (10:30)
[2021-07-07] MEDS ORDERED: QUET200T30 PO (12:05)
[2021-07-07] MEDS ORDERED: SERT-440 PO (12:05)
[2021-07-07] MEDS: SERTRALINE HCL 100 MG TABLET PO SCH (12:37)
[2021-07-07 16:00] VITALS: BP 131/81
[2021-07-07] MEDS: QUEtiapine FUMARATE 200 MG TABLET PO SCH (20:41)
[2021-07-08] MEDS: SERTRALINE HCL 100 MG TABLET PO SCH (08:10)
[2021-07-08 09:14] VITALS: BP 92/60
[2021-07-08 15:42] LABS: APPEARANCE,URINE CLEAR (CLEAR); BILIRUBIN,URINE NEGATIVE (NEGATIVE); GLUCOSE, URINE (UA) NEGATIVE (NEGATIVE); KETONES,URINE NEGATIVE (NEGATIVE); LEUKOCYTE ESTERASE ,URINE NEGATIVE (NEGATIVE); NITRATE,URINE NEGATIVE (NEGATIVE); OCCULT BLOOD,URINE TRACE (NEGATIVE); PH,URINE 5.5 (5.0-8.0); PROTEIN,URINE 30-70 mg/dL (NEGATIVE); SPECIFIC GRAVITIY, URINE 1.022 (1.003-1.030); UROBILINOGEN,URINE <=1.0 mg/dL (<=1.0)
[2021-07-08 15:49] LABS: AMPHET/METH SCREEN,URINE POSITIVE (NEGATIVE); BARBITURATE SCREEN, URINE NEGATIVE (NEGATIVE); BENZODIAZEPINES SCREEN,URINE NEGATIVE (NEGATIVE); CANNABINOID SCREEN,URINE NEGATIVE (NEGATIVE); COCAINE SCREEN,URINE NEGATIVE (NEGATIVE); METHADONE SCREEN, URINE NEGATIVE (NEGATIVE); OPIATE SCREEN,URINE NEGATIVE (NEGATIVE)
[2021-07-08 15:51] LABS: PHENCYCLIDINE SCREEN,URINE NEGATIVE (NEGATIVE)
[2021-07-08 16:00] VITALS: BP 138/96
[2021-07-08 16:17] LABS: BACTERIA,URINE None Seen /HPF (None Seen); RBC,URINE None Seen /HPF (0-2); SQUAMOUS EPITHELIAL CELL,UR Few /LPF (None Seen); URIC ACID CRYSTALS,URINE Moderate /LPF (None Seen); WBC,URINE None Seen /HPF (0-5)
[2021-07-08] MEDS: QUEtiapine FUMARATE 200 MG TABLET PO SCH (20:25)
[2021-07-09 08:51] VITALS: BP 143/85
[2021-07-09] MEDS: SERTRALINE HCL 100 MG TABLET PO SCH (09:04)
[2021-07-09 16:12] VITALS: BP 124/80
[2021-07-09] MEDS: QUEtiapine FUMARATE 200 MG TABLET PO SCH (20:13)
[2021-07-10 08:30] VITALS: BP 125/70
[2021-07-10] MEDS: SERTRALINE HCL 100 MG TABLET PO SCH (08:40)
[2021-07-10 16:29] VITALS: BP 139/91
[2021-07-10 16:30] VITALS: BP 139/91
[2021-07-10] MEDS: QUEtiapine FUMARATE 200 MG TABLET PO SCH (20:28)
[2021-07-10] MEDS: ZOLPIDEM TARTRATE 10 MG TABLET PO PRN (20:28)
[2021-07-11 06:36] LABS: CALCIUM, TOTAL 8.4 mg/dL (8.8-10.5); CREATININE 1.61 mg/dL (0.60-1.30); POTASSIUM 4.7 mmol/L (3.5-5.1)
[2021-07-11 08:30] VITALS: BP 135/85
[2021-07-11] MEDS: SERTRALINE HCL 100 MG TABLET PO SCH (08:34)
[2021-07-11 16:33] VITALS: BP 146/98
[2021-07-11] MEDS: QUEtiapine FUMARATE 200 MG TABLET PO SCH (20:18)
[2021-07-11] MEDS: ZOLPIDEM TARTRATE 10 MG TABLET PO PRN (20:18)
[2021-07-12 08:05] VITALS: BP 129/78
[2021-07-12] MEDS: SERTRALINE HCL 100 MG TABLET PO SCH (08:42)
[2021-07-12 16:00] VITALS: BP 156/92
[2021-07-12] MEDS: QUEtiapine FUMARATE 200 MG TABLET PO SCH (20:22)
[2021-07-12] MEDS: ZOLPIDEM TARTRATE 10 MG TABLET PO PRN (20:22)
[2021-07-13] MEDS: SERTRALINE HCL 100 MG TABLET PO SCH (08:51)
[2021-07-13 09:26] VITALS: BP 135/76
[2021-07-13 10:14] LABS: BASOPHILS % (AUTO) 0.6 % (0.0-2.0); EOSINOPHILS % (AUTO) 3.5 % (1.0-6.0); HEMATOCRIT 33.7 % (41-53); HEMOGLOBIN 11.3 g/dL (13.5-17.5); LYMPHOCYTES % (AUTO) 22.5 % (22.0-44.0); MEAN CORPUSCULAR HEMOGLOBIN 29.9 pg (26.0-34.0); MEAN CORPUSCULAR HGB CONC 33.5 G/dL (31.0-37.0); MEAN CORPUSCULAR VOLUME 89 fL (80-100); MONOCYTES # (AUTO) 0.9 K/uL (0.1-1.0); MONOCYTES % (AUTO) 10.1 % (2.0-9.0); NEUTROPHILS # (AUTO) 5.7 K/uL (1.8-7.7); NEUTROPHILS % (AUTO) 63.3 % (40.0-70.0); PLATELET COUNT (AUTO) 240 K/uL (150-450); RED BLOOD CELL COUNT(AUTO) 3.78 MIL/uL (4.50-5.90); RED CELL DISTRIBUTION WIDTH 15.6 % (11.5-14.5)
[2021-07-13 16:00] VITALS: BP 146/79
[2021-07-13] MEDS: ZOLPIDEM TARTRATE 10 MG TABLET PO PRN (20:20)
[2021-07-13] MEDS: QUEtiapine FUMARATE 200 MG TABLET PO SCH (20:20)
[2021-07-14] MEDS: SERTRALINE HCL 100 MG TABLET PO SCH (08:36)
[2021-07-14 10:17] VITALS: BP 142/98
[2021-07-14 10:21] LABS: COVID AG,FIA SOURCE NASAL SWAB
[2021-07-14 16:20] VITALS: BP 140/75
[2021-07-14] MEDS: QUEtiapine FUMARATE 200 MG TABLET PO SCH (20:06)
[2021-07-14] MEDS: ZOLPIDEM TARTRATE 10 MG TABLET PO PRN (21:16)
[2021-07-15] MEDS: SERTRALINE HCL 100 MG TABLET PO SCH (08:20)
[2021-07-15 09:17] VITALS: BP 146/90
[2021-07-15 16:58] VITALS: BP 153/80
[2021-07-15] MEDS: QUEtiapine FUMARATE 200 MG TABLET PO SCH (20:30)
[2021-07-16] MEDS: SERTRALINE HCL 100 MG TABLET PO SCH (08:31)
[2021-07-16 09:03] VITALS: BP 153/88
[2021-07-16 16:00] VITALS: BP 150/80
[2021-07-16] MEDS: QUEtiapine FUMARATE 200 MG TABLET PO SCH (20:14)
[2021-07-16] MEDS: ZOLPIDEM TARTRATE 10 MG TABLET PO PRN (20:14)
[2021-07-17] MEDS: SERTRALINE HCL 100 MG TABLET PO SCH (08:10)
[2021-07-17 09:17] VITALS: BP 159/88
[2021-07-17 16:00] VITALS: BP 142/85
[2021-07-17] MEDS: QUEtiapine FUMARATE 200 MG TABLET PO SCH (20:05)
[2021-07-18 08:30] VITALS: BP 157/92
[2021-07-18] MEDS: SERTRALINE HCL 100 MG TABLET PO SCH (09:00)
[2021-07-18] MEDS ORDERED: QUET200T30 PO (12:52)
[2021-07-18] MEDS ORDERED: SERT-440 PO (12:52)
== END 2021-07-18 17:30 | disposition home or self-care (01) | DRG 750 ==
LOC: EMS 22:17 → 3EI 07-07 02:00
PROVIDERS: ADMIT Psychiatry & Neurology Child & Adolescent Psychiatry; ATTEND Psychiatry & Neurology Child & Adolescent Psychiatry
DX: F25.1 Schizoaffective disorder, depressive type (principal); N17.9 Acute kidney failure, unspecified; R45.851 Suicidal ideations; Z59.00 Homelessness unspecified; D64.9 Anemia, unspecified; D72.829 Elevated white blood cell count, unspecified; F10.10 Alcohol abuse, uncomplicated; F41.9 Anxiety disorder, unspecified; F19.10 Other psychoactive substance abuse, uncomplicated; Z20.822 Contact with and (suspected) exposure to COVID-19; Y90.9 Presence of alcohol in blood, level not specified; N18.9 Chronic kidney disease, unspecified; Z71.51 Drug abuse counseling and surveillance of drug abuser; Z91.14 Patient's other noncompliance with medication regimen; Z71.41 Alcohol abuse counseling and surveillance of alcoholic
CPT/HCPCS: 80048; 80053; 80307; 81001; 85025; 87081; 99285; G0480

== ENCOUNTER 2021-08-12 21:32 | Emergency (ER) | payer MEDICAID ==
[~2021-08-12] VITALS: Ht 167.6 cm; Wt 81.8 kg
[~2021-08-12 21:32] MED LIST changes: -THIA100T80 PO
[2021-08-12 21:58] VITALS: BP 122/86
[2021-08-12] MEDS ORDERED: LORazepam 2 MG/ML VIAL IM ONE (22:15)
[2021-08-12] MEDS ORDERED: DiphenhydrAMINE HCL 50 MG/ML VIAL IM ONE (22:15)
== END 2021-08-13 00:51 | disposition left against medical advice (07) ==
LOC: EMS 21:32
DX: Z53.21 Procedure and treatment not carried out due to patient leaving prior to being seen by health care provider (principal)
CPT/HCPCS: 96372; J1200; J2060

== ENCOUNTER 2021-08-13 00:59 | Emergency (ER) | payer MEDICAID ==
[~2021-08-13] VITALS: Ht 167.6 cm; Wt 82.0 kg
[2021-08-13 01:53] VITALS: BP 136/78
[2021-08-13 04:30] LABS: BASOPHILS % (AUTO) 0.5 % (0.0-2.0); CALCIUM, TOTAL 8.9 mg/dL (8.8-10.5); CREATININE 2.06 mg/dL (0.60-1.30); EOSINOPHILS % (AUTO) 0.8 % (1.0-6.0); HEMATOCRIT 37.2 % (41-53); HEMOGLOBIN 12.5 g/dL (13.5-17.5); LYMPHOCYTES # (AUTO) 2.6 K/uL (1.0-4.8); LYMPHOCYTES % (AUTO) 26.8 % (22.0-44.0); MEAN CORPUSCULAR HEMOGLOBIN 29.3 pg (26.0-34.0); MEAN CORPUSCULAR HGB CONC 33.5 G/dL (31.0-37.0); MEAN CORPUSCULAR VOLUME 87 fL (80-100); MONOCYTES # (AUTO) 0.8 K/uL (0.1-1.0); MONOCYTES % (AUTO) 7.9 % (2.0-9.0); NEUTROPHILS # (AUTO) 6.1 K/uL (1.8-7.7); PLATELET COUNT (AUTO) 278 K/uL (150-450); POTASSIUM 4.3 mmol/L (3.5-5.1); RED BLOOD CELL COUNT(AUTO) 4.25 MIL/uL (4.50-5.90); RED CELL DISTRIBUTION WIDTH 14.9 % (11.5-14.5)
[2021-08-13 04:37] LABS: ALBUMIN 3.5 g/dL (3.4-5.0); BILIRUBIN,TOTAL 0.2 mg/dL (0.1-1.0); TOTAL PROTEIN, SERUM 9.4 g/dL (6.4-8.2)
== END 2021-08-13 10:20 | disposition home or self-care (01) ==
LOC: EMS 01:00
DX: F25.9 Schizoaffective disorder, unspecified (principal); F31.9 Bipolar disorder, unspecified; F41.9 Anxiety disorder, unspecified; F17.210 Nicotine dependence, cigarettes, uncomplicated; F11.90 Opioid use, unspecified, uncomplicated; F15.90 Other stimulant use, unspecified, uncomplicated
CPT/HCPCS: 36415; 80053; 85025; 99283; G0480

== ENCOUNTER 2021-08-21 13:32 | Inpatient (IN) | payer MEDICAID ==
[~2021-08-21] VITALS: Ht 172.7 cm; Wt 88.0 kg
[2021-08-21 15:59] LABS: BASOPHILS % (AUTO) 0.3 % (0.0-2.0); HEMATOCRIT 34.9 % (41-53); HEMOGLOBIN 11.4 g/dL (13.5-17.5); LYMPHOCYTES # (AUTO) 1.4 K/uL (1.0-4.8); LYMPHOCYTES % (AUTO) 18.6 % (22.0-44.0); MEAN CORPUSCULAR HEMOGLOBIN 28.7 pg (26.0-34.0); MEAN CORPUSCULAR HGB CONC 32.5 G/dL (31.0-37.0); MEAN CORPUSCULAR VOLUME 88 fL (80-100); MONOCYTES # (AUTO) 0.6 K/uL (0.1-1.0); MONOCYTES % (AUTO) 7.5 % (2.0-9.0); NEUTROPHILS # (AUTO) 5.5 K/uL (1.8-7.7); NEUTROPHILS % (AUTO) 72.6 % (40.0-70.0); PLATELET COUNT (AUTO) 266 K/uL (150-450); RED BLOOD CELL COUNT(AUTO) 3.96 MIL/uL (4.50-5.90)
[2021-08-21 16:13] LABS: ANION GAP 8 mmol/L (8-16); CALCIUM, TOTAL 9.1 mg/dL (8.8-10.5); CARBON DIOXIDE 27 mmol/L (22-29); CHLORIDE 103 mmol/L (98-107); CREATININE 1.52 mg/dL (0.60-1.30); GLUCOSE,RANDOM 88 mg/dL (70-110); POTASSIUM 3.8 mmol/L (3.5-5.1); SODIUM SERUM 138 mmol/L (136-145); UREA NITROGEN, BLOOD 17 mg/dL (7-18)
[2021-08-21 16:14] LABS: GLOMERULAR FILTR. RATE CALC 47 mL/min (>60)
[2021-08-21 16:20] LABS: ALANINE AMINOTRANSFERASE 19 U/L (12-78); ALBUMIN 3.2 g/dL (3.4-5.0); ALKALINE PHOSPHATASE 73 U/L (46-116); ASPARTATE AMINOTRANSFERASE 17 U/L (15-37); BILIRUBIN,TOTAL 0.5 mg/dL (0.1-1.0); TOTAL PROTEIN, SERUM 8.4 g/dL (6.4-8.2)
[2021-08-21] MEDS ORDERED: LORazepam 1 MG TABLET PO ONE (16:30)
[2021-08-21] MEDS ORDERED: HALOPERIDOL 5 MG TABLET PO ONE (16:30)
[2021-08-21] MEDS ORDERED: QUET300T2 PO (17:00)
[2021-08-21] MEDS ORDERED: LORazepam 2 MG TABLET PO PRN (17:45)
[2021-08-21 17:58] LABS: COVID AG,FIA SOURCE NASOPHARYNGEAL
[2021-08-21] MEDS ORDERED: PERMETHRIN 5% 60 GM CREAM TP ONE (19:15)
[2021-08-21 21:00] VITALS: BP 137/82
[2021-08-22] MEDS ORDERED: NICOTINE 14 MG/24 HOUR PATCH TD PRN (06:30)
[2021-08-22] MEDS ORDERED: ALBUTEROL SULFATE HFA 90 MCG/PUFF 8 GM INHALER IH PRN (06:30)
[2021-08-22] MEDS ORDERED: DOCUSATE SODIUM 100 MG CAPSULE PO PRN (06:30)
[2021-08-22] MEDS ORDERED: ONDANSETRON HCL 4 MG TABLET PO PRN (06:30)
[2021-08-22] MEDS ORDERED: LOPERAMIDE HCL 2 MG CAPSULE PO PRN (06:30)
[2021-08-22] MEDS ORDERED: MAG HYDROX/AL HYDROX/SIMETH ES 30 ML SUSPENSION UDCUP PO PRN (06:30)
[2021-08-22] MEDS ORDERED: IBUPROFEN 400 MG TABLET PO PRN (06:30)
[2021-08-22] MEDS ORDERED: PETROLATUM,WHITE 28 GM JELLY TP PRN (06:30)
[2021-08-22] MEDS ORDERED: MAGNESIUM HYDROXIDE SUSPENSION 30 ML UDCUP PO PRN (06:30)
[2021-08-22] MEDS ORDERED: GuaiFENesin/D-METHORPHAN [SUGAR-FREE] 200-20MG/10 ML SYRUP UDCUP PO PRN (06:30)
[2021-08-22] MEDS ORDERED: CloNIDine HCL 0.1 MG TABLET PO PRN (06:30)
[2021-08-22 08:00] VITALS: BP 97/58
[2021-08-22 12:00] VITALS: BP 150/91
[2021-08-22 16:00] VITALS: BP 150/91
[2021-08-22 16:11] VITALS: BP 150/91
[2021-08-22] MEDS: QUEtiapine FUMARATE 300 MG TABLET PO SCH (20:36)
[2021-08-23 08:00] VITALS: BP 126/68
[2021-08-23 16:00] VITALS: BP 127/90
[2021-08-23] MEDS: QUEtiapine FUMARATE 300 MG TABLET PO SCH (20:24)
[2021-08-23] MEDS: ZOLPIDEM TARTRATE 10 MG TABLET PO PRN (22:33)
[2021-08-24 08:00] VITALS: BP 150/81
[2021-08-24 17:12] VITALS: BP 159/102
[2021-08-24] MEDS: QUEtiapine FUMARATE 300 MG TABLET PO SCH (20:15)
[2021-08-25 09:02] VITALS: BP 107/71
[2021-08-25 16:00] VITALS: BP 135/93
[2021-08-25] MEDS: QUEtiapine FUMARATE 300 MG TABLET PO SCH (20:07)
[2021-08-25] MEDS: ZOLPIDEM TARTRATE 10 MG TABLET PO PRN (21:23)
[2021-08-26 09:55] VITALS: BP 120/82
[2021-08-26 16:41] VITALS: BP 132/85
[2021-08-26] MEDS: QUEtiapine FUMARATE 300 MG TABLET PO SCH (20:16)
[2021-08-26 21:00] VITALS: BP 140/75
[2021-08-26] MEDS: ZOLPIDEM TARTRATE 10 MG TABLET PO PRN (21:05)
[2021-08-27 07:12] LABS: COVID AG,FIA SOURCE NASAL SWAB
[2021-08-27 08:30] VITALS: BP 133/86
[2021-08-27 16:41] VITALS: BP 156/89
[2021-08-27] MEDS: QUEtiapine FUMARATE 300 MG TABLET PO SCH (20:12)
[2021-08-28 08:00] VITALS: BP 149/86
[2021-08-28 12:35] VITALS: BP 140/82
[2021-08-28 16:00] VITALS: BP 149/83
[2021-08-28] MEDS: QUEtiapine FUMARATE 300 MG TABLET PO SCH (21:15)
[2021-08-28] MEDS: ZOLPIDEM TARTRATE 10 MG TABLET PO PRN (22:46)
[2021-08-29 08:46] VITALS: BP 136/85
[2021-08-29 16:36] VITALS: BP 146/84
[2021-08-29] MEDS: HALOPERIDOL 5 MG TABLET PO PRN (20:13)
[2021-08-29] MEDS: QUEtiapine FUMARATE 300 MG TABLET PO SCH (20:13)
[2021-08-30 08:00] VITALS: BP 150/90
[2021-08-30 16:10] VITALS: BP 159/96
[2021-08-30] MEDS: HALOPERIDOL 5 MG TABLET PO PRN (20:00)
[2021-08-30] MEDS: QUEtiapine FUMARATE 300 MG TABLET PO SCH (20:00)
[2021-08-31 08:47] VITALS: BP 122/62
[2021-08-31 16:36] VITALS: BP 142/77
[2021-08-31] MEDS: HALOPERIDOL 5 MG TABLET PO PRN (20:28)
[2021-08-31] MEDS: QUEtiapine FUMARATE 300 MG TABLET PO SCH (20:28)
[2021-09-01 08:00] VITALS: BP 162/98
[2021-09-01 11:50] VITALS: BP 145/87
[2021-09-01 16:14] VITALS: BP 146/86
[2021-09-01] MEDS: QUEtiapine FUMARATE 300 MG TABLET PO SCH (20:30)
[2021-09-01 21:45] VITALS: BP 135/86
[2021-09-01] MEDS: ACETAMINOPHEN 325 MG TABLET PO PRN (21:45)
[2021-09-02 16:38] VITALS: BP 160/94
[2021-09-02] MEDS: QUEtiapine FUMARATE 300 MG TABLET PO SCH (20:11)
[2021-09-02 20:35] VITALS: BP 150/81
[2021-09-02] MEDS: ACETAMINOPHEN 325 MG TABLET PO PRN (21:33)
[2021-09-03 07:10] LABS: COVID AG,FIA SOURCE NASAL SWAB
[2021-09-03 08:10] VITALS: BP 132/73
[2021-09-03 16:20] VITALS: BP 158/87
[2021-09-03] MEDS: QUEtiapine FUMARATE 300 MG TABLET PO SCH (20:13)
[2021-09-03] MEDS: ZOLPIDEM TARTRATE 10 MG TABLET PO PRN (20:14)
[2021-09-04 08:00] VITALS: BP 149/92
[2021-09-04 16:28] VITALS: BP 144/79
[2021-09-04] MEDS: QUEtiapine FUMARATE 300 MG TABLET PO SCH (20:02)
[2021-09-04] MEDS: ZOLPIDEM TARTRATE 10 MG TABLET PO PRN (20:02)
[2021-09-05 08:55] VITALS: BP 140/60
[2021-09-05 16:33] VITALS: BP 152/89
[2021-09-05] MEDS: ZOLPIDEM TARTRATE 10 MG TABLET PO PRN (20:30)
[2021-09-05] MEDS: QUEtiapine FUMARATE 300 MG TABLET PO SCH (20:30)
[2021-09-06 08:02] VITALS: BP 155/97
[2021-09-06 16:00] VITALS: BP 145/84
[2021-09-06] MEDS: QUEtiapine FUMARATE 300 MG TABLET PO SCH (20:10)
[2021-09-06] MEDS: ZOLPIDEM TARTRATE 10 MG TABLET PO PRN (20:10)
[2021-09-07 09:52] VITALS: BP 128/79
[2021-09-07 16:51] VITALS: BP 143/91
[2021-09-07] MEDS: QUEtiapine FUMARATE 300 MG TABLET PO SCH (20:02)
[2021-09-07] MEDS: ZOLPIDEM TARTRATE 10 MG TABLET PO PRN (20:02)
[2021-09-08 09:04] VITALS: BP 154/89
[2021-09-08 16:30] VITALS: BP 160/69
[2021-09-08] MEDS: QUEtiapine FUMARATE 300 MG TABLET PO SCH (20:11)
[2021-09-08] MEDS: ZOLPIDEM TARTRATE 10 MG TABLET PO PRN (20:57)
[2021-09-09 05:44] VITALS: BP 148/89
[2021-09-09 08:02] VITALS: BP 139/88
[2021-09-09 16:16] VITALS: BP 150/89
[2021-09-09] MEDS: QUEtiapine FUMARATE 300 MG TABLET PO SCH (20:20)
[2021-09-09] MEDS: ZOLPIDEM TARTRATE 10 MG TABLET PO PRN (20:20)
[2021-09-10 08:01] VITALS: BP 154/97
[2021-09-10 16:20] LABS: COVID AG,FIA SOURCE NASOPHARYNGEAL
[2021-09-10 16:26] VITALS: BP 148/100
[2021-09-10] MEDS: QUEtiapine FUMARATE 300 MG TABLET PO SCH (20:33)
[2021-09-10] MEDS: HALOPERIDOL 5 MG TABLET PO PRN (20:33)
[2021-09-11 08:00] VITALS: BP 109/68
[2021-09-11 16:30] VITALS: BP 154/96
[2021-09-11] MEDS: QUEtiapine FUMARATE 300 MG TABLET PO SCH (20:52)
[2021-09-11] MEDS: HALOPERIDOL 5 MG TABLET PO PRN (20:53)
[2021-09-12 08:04] VITALS: BP 155/90
[2021-09-12 16:46] VITALS: BP 154/98
[2021-09-12] MEDS: QUEtiapine FUMARATE 300 MG TABLET PO SCH (20:42)
[2021-09-12] MEDS: HALOPERIDOL 5 MG TABLET PO PRN (20:42)
[2021-09-13 08:00] VITALS: BP 141/94
[2021-09-13 16:02] VITALS: BP 137/83
[2021-09-13] MEDS: QUEtiapine FUMARATE 300 MG TABLET PO SCH (20:20)
[2021-09-13] MEDS: ZOLPIDEM TARTRATE 10 MG TABLET PO PRN (20:20)
[2021-09-14 08:00] VITALS: BP 142/97
[2021-09-14 16:00] VITALS: BP 133/86
[2021-09-14] MEDS: QUEtiapine FUMARATE 300 MG TABLET PO SCH (20:47)
[2021-09-14] MEDS: ZOLPIDEM TARTRATE 10 MG TABLET PO PRN (20:48)
[2021-09-15 08:00] VITALS: BP 150/90
[2021-09-15 16:00] VITALS: BP 159/96
[2021-09-15] MEDS: ZOLPIDEM TARTRATE 10 MG TABLET PO PRN (20:29)
[2021-09-15] MEDS: QUEtiapine FUMARATE 300 MG TABLET PO SCH (20:29)
[2021-09-15 20:57] VITALS: BP 147/77
[2021-09-16 08:55] VITALS: BP 144/88
[2021-09-16 12:21] VITALS: BP 144/88
[2021-09-16 16:00] VITALS: BP 130/81
[2021-09-16] MEDS: ZOLPIDEM TARTRATE 10 MG TABLET PO PRN (20:08)
[2021-09-16] MEDS: QUEtiapine FUMARATE 300 MG TABLET PO SCH (20:08)
[2021-09-17 07:06] LABS: COVID AG,FIA SOURCE NASAL SWAB
[2021-09-17 08:00] VITALS: BP 138/76
[2021-09-17 13:03] VITALS: BP 134/74
[2021-09-17 16:16] VITALS: BP 158/90
[2021-09-17] MEDS: ZOLPIDEM TARTRATE 10 MG TABLET PO PRN (20:02)
[2021-09-17] MEDS: QUEtiapine FUMARATE 300 MG TABLET PO SCH (20:02)
[2021-09-18 08:00] VITALS: BP 139/86
[2021-09-18 16:16] VITALS: BP 146/89
[2021-09-18] MEDS: ZOLPIDEM TARTRATE 10 MG TABLET PO PRN (20:00)
[2021-09-18] MEDS: QUEtiapine FUMARATE 300 MG TABLET PO SCH (20:00)
[2021-09-19 06:15] VITALS: BP 165/87
[2021-09-19 08:06] VITALS: BP 154/92
[2021-09-19 16:24] VITALS: BP 165/94
[2021-09-19] MEDS: ZOLPIDEM TARTRATE 10 MG TABLET PO PRN (20:05)
[2021-09-19] MEDS: QUEtiapine FUMARATE 300 MG TABLET PO SCH (20:05)
[2021-09-20 09:50] VITALS: BP 134/84
[2021-09-20 16:00] VITALS: BP 149/90
[2021-09-20] MEDS: QUEtiapine FUMARATE 300 MG TABLET PO SCH (20:25)
[2021-09-20] MEDS: ZOLPIDEM TARTRATE 10 MG TABLET PO PRN (20:25)
[2021-09-21 10:39] VITALS: BP 155/93
[2021-09-21] MEDS ORDERED: QUET300T19 PO (16:21)
== END 2021-09-21 15:05 | disposition home or self-care (01) | DRG 750 ==
LOC: EMS 13:36 → 3EI 18:00
PROVIDERS: ADMIT Psychiatry & Neurology Child & Adolescent Psychiatry; ATTEND Psychiatry & Neurology Child & Adolescent Psychiatry
DX: F25.1 Schizoaffective disorder, depressive type (principal); N17.9 Acute kidney failure, unspecified; K74.60 Unspecified cirrhosis of liver; R45.851 Suicidal ideations; D64.9 Anemia, unspecified; F10.10 Alcohol abuse, uncomplicated; F41.9 Anxiety disorder, unspecified; Z59.00 Homelessness unspecified; Z79.899 Other long term (current) drug therapy; Z87.891 Personal history of nicotine dependence; Z20.822 Contact with and (suspected) exposure to COVID-19
CPT/HCPCS: 80053; 85025; 99285; G0480

== ENCOUNTER 2021-12-04 01:45 | Inpatient (IN) | payer MEDICAID ==
[~2021-12-04] VITALS: Ht 170.2 cm; Wt 81.8 kg
[~2021-12-04 01:45] MED LIST changes: -QUET200T30 PO; +QUET300T2 PO; -SERT-440 PO
[2021-12-04 02:44] LABS: COVID AG,FIA SOURCE NASOPHARYNGEAL
[2021-12-04 02:45] LABS: BASOPHILS % (AUTO) 0.5 % (0.0-2.0); EOSINOPHILS % (AUTO) 0.9 % (1.0-6.0); HEMATOCRIT 34.1 % (41-53); HEMOGLOBIN 11.1 g/dL (13.5-17.5); LYMPHOCYTES # (AUTO) 1.6 K/uL (1.0-4.8); LYMPHOCYTES % (AUTO) 18.1 % (22.0-44.0); MEAN CORPUSCULAR HEMOGLOBIN 29.1 pg (26.0-34.0); MEAN CORPUSCULAR HGB CONC 32.6 G/dL (31.0-37.0); MEAN CORPUSCULAR VOLUME 89 fL (80-100); MONOCYTES # (AUTO) 0.9 K/uL (0.1-1.0); MONOCYTES % (AUTO) 10.4 % (2.0-9.0); NEUTROPHILS # (AUTO) 6.4 K/uL (1.8-7.7); NEUTROPHILS % (AUTO) 70.1 % (40.0-70.0); PLATELET COUNT (AUTO) 305 K/uL (150-450); RED BLOOD CELL COUNT(AUTO) 3.82 MIL/uL (4.50-5.90); RED CELL DISTRIBUTION WIDTH 15.6 % (11.5-14.5)
[2021-12-04 02:54] LABS: AMPHET/METH SCREEN,URINE NEGATIVE (NEGATIVE); BARBITURATE SCREEN, URINE NEGATIVE (NEGATIVE); BENZODIAZEPINES SCREEN,URINE NEGATIVE (NEGATIVE); CANNABINOID SCREEN,URINE NEGATIVE (NEGATIVE); COCAINE SCREEN,URINE NEGATIVE (NEGATIVE); METHADONE SCREEN, URINE NEGATIVE (NEGATIVE); OPIATE SCREEN,URINE NEGATIVE (NEGATIVE)
[2021-12-04 02:56] LABS: PHENCYCLIDINE SCREEN,URINE NEGATIVE (NEGATIVE)
[2021-12-04 02:56] LABS: CALCIUM, TOTAL 8.8 mg/dL (8.8-10.5); CREATININE 1.91 mg/dL (0.60-1.30)
[2021-12-04 03:02] LABS: ALBUMIN 3.7 g/dL (3.4-5.0); BILIRUBIN,TOTAL 0.2 mg/dL (0.1-1.0); TOTAL PROTEIN, SERUM 9.3 g/dL (6.4-8.2)
[2021-12-04] MEDS ORDERED: ZOLPIDEM TARTRATE 10 MG TABLET PO PRN (03:15)
[2021-12-04] MEDS ORDERED: QUEtiapine FUMARATE 100 MG TABLET PO PRN (03:15)
[2021-12-04] MEDS ORDERED: HALOPERIDOL 5 MG TABLET PO ONE (03:15)
[2021-12-04 04:50] VITALS: BP 160/91
[2021-12-04 05:33] LABS: HEMOGLOBIN A1C 5.8 % (3.8-5.6)
[2021-12-04 05:41] LABS: FREE T4 (FREE THYROXINE) 1.03 ng/dL (0.76-1.46); THYROID STIMULATING HORMONE 0.98 uIU/mL (0.36-3.74)
[2021-12-04 06:58] LABS: APPEARANCE,URINE CLEAR (CLEAR); BILIRUBIN,URINE NEGATIVE (NEGATIVE); GLUCOSE, URINE (UA) NEGATIVE (NEGATIVE); KETONES,URINE NEGATIVE (NEGATIVE); LEUKOCYTE ESTERASE ,URINE NEGATIVE (NEGATIVE); NITRATE,URINE NEGATIVE (NEGATIVE); OCCULT BLOOD,URINE TRACE (NEGATIVE); PH,URINE 5.5 (5.0-8.0); PROTEIN,URINE 30-70 mg/dL (NEGATIVE); SPECIFIC GRAVITIY, URINE 1.008 (1.003-1.030); UROBILINOGEN,URINE <=1.0 mg/dL (<=1.0)
[2021-12-04] MEDS ORDERED: INFLUENZA VIRUS VACCINE QVS 2022-23 (6MO+)/PF 60 MCG/0.5 ML SYRINGE IM. ONE (07:00)
[2021-12-04 08:01] LABS: BACTERIA,URINE None Seen /HPF (None Seen); RBC,URINE 0-2 /HPF (0-2); WBC,URINE None Seen /HPF (0-5)
[2021-12-04] MEDS: LORazepam 2 MG TABLET PO PRN (08:21)
[2021-12-04 08:49] VITALS: BP 118/68
[2021-12-04] MEDS ORDERED: HydrOXYzine PAMOATE 50 MG CAPSULE PO PRN (11:45)
[2021-12-04] MEDS ORDERED: OLANZapine 5 MG RAPDIS TABLET PO PRN (11:45)
[2021-12-04] MEDS ORDERED: PROMETHAZINE HCL 25 MG TABLET PO PRN (11:45)
[2021-12-04] MEDS ORDERED: GuaiFENesin/D-METHORPHAN [SUGAR-FREE] 200-20MG/10 ML SYRUP UDCUP PO PRN (11:45)
[2021-12-04] MEDS ORDERED: TUBERCULIN, PURIFIED PROTEIN DERIVATIVE 5 TU/0.1 ML SYRINGE ID ONE (11:45)
[2021-12-04] MEDS ORDERED: MAGNESIUM HYDROXIDE SUSPENSION 30 ML UDCUP PO PRN (11:45)
[2021-12-04] MEDS ORDERED: ACETAMINOPHEN 325 MG TABLET PO PRN (11:45)
[2021-12-04] MEDS ORDERED: LOPERAMIDE HCL 2 MG CAPSULE PO PRN (11:45)
[2021-12-04] MEDS ORDERED: MAG HYDROX/AL HYDROX/SIMETH ES 30 ML SUSPENSION UDCUP PO PRN (11:45)
[2021-12-04] MEDS: THIAMINE 100 MG TABLET PO SCH (16:55)
[2021-12-04 20:28] VITALS: BP_SYST 140; BP_SYST 240; BP_DIAS 82
[2021-12-04] MEDS: MELATONIN 5 MG TABLET PO SCH (20:35)
[2021-12-04] MEDS: MIRTAZAPINE 15 MG TABLET PO SCH (20:35)
[2021-12-04] MEDS ORDERED: OLANZapine 5 MG RAPDIS TABLET PO SCH (21:00)
[2021-12-05 01:00] VITALS: BP 128/68
[2021-12-05 07:23] LABS: HEMOGLOBIN A1C 5.7 % (3.8-5.6)
[2021-12-05 07:39] LABS: CHOL/HDL RATIO 3.3 (4.2-7.3); FREE T4 (FREE THYROXINE) 0.89 ng/dL (0.76-1.46); THYROID STIMULATING HORMONE 0.86 uIU/mL (0.36-3.74)
[2021-12-05 08:26] VITALS: BP 139/91
[2021-12-05] MEDS: MULTIVITAMINS WITH MINERALS, THERAPEUTIC TABLET PO SCH (08:28)
[2021-12-05] MEDS: NALTREXONE HCL 50 MG TABLET PO SCH (08:28)
[2021-12-05] MEDS: OMEGA-3/DHA/EPA/FISH OIL 1,000 MG CAPSULE PO SCH (08:28)
[2021-12-05] MEDS: FOLIC ACID 1 MG TABLET PO SCH (08:28)
[2021-12-05] MEDS: THIAMINE 100 MG TABLET PO SCH ×2 (08:28→17:05)
[2021-12-05] MEDS: DEXTROMETHORPHAN HBR/QUINIDINE 20/10 MG CAPSULE PO SCH (08:29)
[2021-12-05] MEDS ORDERED: FLUoxetine HCL 20 MG CAPSULE PO SCH (09:00)
[2021-12-05 20:14] VITALS: BP 135/82
[2021-12-05] MEDS: MIRTAZAPINE 15 MG TABLET PO SCH (20:16)
[2021-12-05] MEDS: OLANZapine 10 MG RAPDIS TABLET PO SCH (20:16)
[2021-12-05] MEDS: MELATONIN 5 MG TABLET PO SCH (20:16)
[2021-12-06 07:20] LABS: BASOPHILS % (AUTO) 0.7 % (0.0-2.0); EOSINOPHILS % (AUTO) 3.7 % (1.0-6.0); HEMOGLOBIN 11.3 g/dL (13.5-17.5); LYMPHOCYTES # (AUTO) 2.6 K/uL (1.0-4.8); LYMPHOCYTES % (AUTO) 29.8 % (22.0-44.0); MEAN CORPUSCULAR HEMOGLOBIN 28.8 pg (26.0-34.0); MEAN CORPUSCULAR HGB CONC 32.3 G/dL (31.0-37.0); MEAN CORPUSCULAR VOLUME 89 fL (80-100); MONOCYTES # (AUTO) 0.9 K/uL (0.1-1.0); MONOCYTES % (AUTO) 10.3 % (2.0-9.0); NEUTROPHILS # (AUTO) 4.8 K/uL (1.8-7.7); NEUTROPHILS % (AUTO) 55.5 % (40.0-70.0); PLATELET COUNT (AUTO) 315 K/uL (150-450); RED BLOOD CELL COUNT(AUTO) 3.92 MIL/uL (4.50-5.90); RED CELL DISTRIBUTION WIDTH 15.7 % (11.5-14.5)
[2021-12-06] MEDS: NALTREXONE HCL 50 MG TABLET PO SCH (08:14)
[2021-12-06] MEDS: FOLIC ACID 1 MG TABLET PO SCH (08:14)
[2021-12-06] MEDS: THIAMINE 100 MG TABLET PO SCH ×2 (08:14→17:03)
[2021-12-06] MEDS: MULTIVITAMINS WITH MINERALS, THERAPEUTIC TABLET PO SCH (08:14)
[2021-12-06] MEDS: LORazepam 2 MG TABLET PO PRN (08:14)
[2021-12-06] MEDS: OMEGA-3/DHA/EPA/FISH OIL 1,000 MG CAPSULE PO SCH (08:14)
[2021-12-06] MEDS: DEXTROMETHORPHAN HBR/QUINIDINE 20/10 MG CAPSULE PO SCH (08:15)
[2021-12-06 09:27] VITALS: BP 125/70
[2021-12-06] MEDS ORDERED: OLAN10TA26 PO (13:29)
[2021-12-06] MEDS ORDERED: MELA5TAB40 PO (13:29)
[2021-12-06] MEDS ORDERED: DEXT1CAP3 PO (13:29)
[2021-12-06] MEDS ORDERED: NALT50TA PO (13:29)
[2021-12-06] MEDS ORDERED: OMEG-135 PO (13:29)
[2021-12-06 20:13] VITALS: BP 126/80
[2021-12-06] MEDS: MELATONIN 5 MG TABLET PO SCH (20:30)
[2021-12-06] MEDS: OLANZapine 10 MG RAPDIS TABLET PO SCH (20:30)
[2021-12-06] MEDS: MIRTAZAPINE 15 MG TABLET PO SCH (20:30)
[2021-12-07] MEDS ORDERED: MIRT-89 PO (08:00)
[2021-12-07] MEDS: MULTIVITAMINS WITH MINERALS, THERAPEUTIC TABLET PO SCH (08:14)
[2021-12-07] MEDS: NALTREXONE HCL 50 MG TABLET PO SCH (08:15)
[2021-12-07] MEDS: LORazepam 2 MG TABLET PO PRN (08:15)
[2021-12-07] MEDS: OMEGA-3/DHA/EPA/FISH OIL 1,000 MG CAPSULE PO SCH (08:15)
[2021-12-07] MEDS: FOLIC ACID 1 MG TABLET PO SCH (08:15)
[2021-12-07] MEDS: THIAMINE 100 MG TABLET PO SCH (08:15)
[2021-12-07] MEDS: DEXTROMETHORPHAN HBR/QUINIDINE 20/10 MG CAPSULE PO SCH (08:15)
[2021-12-07 08:31] VITALS: BP 122/68
== END 2021-12-07 16:21 | disposition home or self-care (01) | DRG 750 ==
LOC: EMS 01:45 → B3A 03:38
PROVIDERS: ADMIT Psychiatry & Neurology Psychiatry; ATTEND Psychiatry & Neurology Psychiatry
DX: F25.1 Schizoaffective disorder, depressive type (principal); R45.851 Suicidal ideations; K74.60 Unspecified cirrhosis of liver; Z91.199 Patient's noncompliance with other medical treatment and regimen due to unspecified reason; B19.20 Unspecified viral hepatitis C without hepatic coma; F11.90 Opioid use, unspecified, uncomplicated; D64.9 Anemia, unspecified; F60.0 Paranoid personality disorder; F17.210 Nicotine dependence, cigarettes, uncomplicated; J44.9 Chronic obstructive pulmonary disease, unspecified; Z20.822 Contact with and (suspected) exposure to COVID-19; N18.32 Chronic kidney disease, stage 3b; Z55.9 Problems related to education and literacy, unspecified; Z59.9 Problem related to housing and economic circumstances, unspecified; Z63.9 Problem related to primary support group, unspecified; Z65.3 Problems related to other legal circumstances; Z91.410 Personal history of adult physical and sexual abuse
CPT/HCPCS: 80053; 80061; 81001; 83036; 84439; 84443; 85025; 86592; 99285; G0480; Q9967

== ENCOUNTER 2021-12-08 01:24 | Inpatient (IN) | payer MEDICAID ==
[~2021-12-08] VITALS: Ht 172.7 cm; Wt 80.9 kg
[~2021-12-08 01:24] MED LIST changes: +DEXT1CAP3 PO; +MELA5TAB40 PO; +NALT50TA PO; +OLAN10TA26 PO; +OMEG-135 PO; -QUET300T2 PO
[2021-12-08 01:52] LABS: COVID AG,FIA SOURCE NASOPHARYNGEAL
[2021-12-08 01:55] LABS: BASOPHILS % (AUTO) 0.7 % (0.0-2.0); EOSINOPHILS % (AUTO) 0.2 % (1.0-6.0); HEMATOCRIT 35.3 % (41-53); HEMOGLOBIN 11.5 g/dL (13.5-17.5); LYMPHOCYTES # (AUTO) 2.1 K/uL (1.0-4.8); LYMPHOCYTES % (AUTO) 18.5 % (22.0-44.0); MEAN CORPUSCULAR HEMOGLOBIN 28.5 pg (26.0-34.0); MEAN CORPUSCULAR HGB CONC 32.4 G/dL (31.0-37.0); MEAN CORPUSCULAR VOLUME 88 fL (80-100); MONOCYTES # (AUTO) 0.8 K/uL (0.1-1.0); MONOCYTES % (AUTO) 7.1 % (2.0-9.0); NEUTROPHILS # (AUTO) 8.3 K/uL (1.8-7.7); NEUTROPHILS % (AUTO) 73.5 % (40.0-70.0); PLATELET COUNT (AUTO) 319 K/uL (150-450); RED BLOOD CELL COUNT(AUTO) 4.01 MIL/uL (4.50-5.90); RED CELL DISTRIBUTION WIDTH 15.5 % (11.5-14.5)
[2021-12-08 01:59] LABS: CALCIUM, TOTAL 9.1 mg/dL (8.8-10.5); CREATININE 1.54 mg/dL (0.60-1.30); POTASSIUM 4.1 mmol/L (3.5-5.1)
[2021-12-08 02:03] LABS: ALBUMIN 3.8 g/dL (3.4-5.0); BILIRUBIN,TOTAL 0.2 mg/dL (0.1-1.0); TOTAL PROTEIN, SERUM 9.6 g/dL (6.4-8.2)
[2021-12-08 02:04] LABS: AMPHET/METH SCREEN,URINE POSITIVE (NEGATIVE); BARBITURATE SCREEN, URINE NEGATIVE (NEGATIVE); BENZODIAZEPINES SCREEN,URINE NEGATIVE (NEGATIVE); CANNABINOID SCREEN,URINE NEGATIVE (NEGATIVE); COCAINE SCREEN,URINE NEGATIVE (NEGATIVE); METHADONE SCREEN, URINE NEGATIVE (NEGATIVE); OPIATE SCREEN,URINE NEGATIVE (NEGATIVE)
[2021-12-08 02:05] LABS: PHENCYCLIDINE SCREEN,URINE NEGATIVE (NEGATIVE)
[2021-12-08] MEDS ORDERED: LORazepam 2 MG TABLET PO PRN (03:15)
[2021-12-08] MEDS ORDERED: ZOLPIDEM TARTRATE 10 MG TABLET PO PRN (03:15)
[2021-12-08] MEDS ORDERED: HALOPERIDOL 5 MG TABLET PO PRN (03:15)
[2021-12-08 07:33] VITALS: BP 141/72
[2021-12-08 08:00] VITALS: BP 136/77
[2021-12-08] MEDS ORDERED: INFLUENZA VIRUS VACCINE QVS 2022-23 (6MO+)/PF 60 MCG/0.5 ML SYRINGE IM. ONE (10:15)
[2021-12-08 20:24] VITALS: BP 139/78
[2021-12-08] MEDS: OLANZapine 10 MG TABLET PO SCH (21:00)
[2021-12-08] MEDS: MELATONIN 5 MG TABLET PO SCH (21:00)
[2021-12-09 08:56] VITALS: BP 115/82
[2021-12-09] MEDS: OLANZapine 10 MG TABLET PO SCH (20:20)
[2021-12-09] MEDS: MELATONIN 5 MG TABLET PO SCH (20:20)
[2021-12-09 20:30] VITALS: BP 131/82
[2021-12-10] MEDS ORDERED: ACETAMINOPHEN 325 MG TABLET PO PRN (10:00)
[2021-12-10] MEDS ORDERED: PALIPERIDONE PALMITATE 234 MG/1.5 ML SYRINGE IM ONE (10:00)
[2021-12-10] MEDS ORDERED: MAGNESIUM HYDROXIDE SUSPENSION 30 ML UDCUP PO PRN (10:00)
[2021-12-10] MEDS ORDERED: HydrOXYzine PAMOATE 50 MG CAPSULE PO PRN (10:00)
[2021-12-10] MEDS ORDERED: PROMETHAZINE HCL 25 MG TABLET PO PRN (10:00)
[2021-12-10] MEDS ORDERED: LOPERAMIDE HCL 2 MG CAPSULE PO PRN ×2 (10:00)
[2021-12-10] MEDS ORDERED: GuaiFENesin/D-METHORPHAN [SUGAR-FREE] 200-20MG/10 ML SYRUP UDCUP PO PRN (10:00)
[2021-12-10] MEDS ORDERED: MAG HYDROX/AL HYDROX/SIMETH ES 30 ML SUSPENSION UDCUP PO PRN (10:00)
[2021-12-10 14:00] VITALS: BP 159/98
[2021-12-10] MEDS ORDERED: MELA5TAB40 PO (14:47)
[2021-12-10] MEDS ORDERED: OLAN10 PO (14:47)
[2021-12-10] MEDS ORDERED: OMEG-135 PO (14:47)
[2021-12-10] MEDS ORDERED: DIVA-80 PO (14:47)
[2021-12-10] MEDS ORDERED: NALT50TA PO (14:47)
[2021-12-10] MEDS: THIAMINE 100 MG TABLET PO SCH (16:08)
[2021-12-10 20:39] VITALS: BP 145/84
[2021-12-10] MEDS ORDERED: DIVALPROEX SODIUM 500 MG ER TABLET PO SCH (21:00)
[2021-12-10] MEDS ORDERED: OLANZapine 10 MG TABLET PO SCH (21:00)
[2021-12-10] MEDS ORDERED: MELATONIN 5 MG TABLET PO SCH (21:00)
[2021-12-10] MEDS: MELATONIN 5 MG TABLET PO SCH (21:27)
[2021-12-11] MEDS: THIAMINE 100 MG TABLET PO SCH (08:09)
[2021-12-11 08:46] VITALS: BP 143/86
[2021-12-11] MEDS ORDERED: MULTIVITAMINS WITH MINERALS, THERAPEUTIC TABLET PO SCH (09:00)
[2021-12-11] MEDS ORDERED: OMEGA-3/DHA/EPA/FISH OIL 1,000 MG CAPSULE PO SCH (09:00)
[2021-12-11] MEDS ORDERED: FOLIC ACID 1 MG TABLET PO SCH (09:00)
[2021-12-11] MEDS ORDERED: NALTREXONE HCL 50 MG TABLET PO SCH (09:00)
[2021-12-14] MEDS ORDERED: PALIPERIDONE PALMITATE 156 MG/ML SYRINGE IM ONE (09:00)
== END 2021-12-11 13:05 | disposition home or self-care (01) | DRG 750 ==
LOC: EMS 01:24 → B3A 05:37 → B2S 17:52
PROVIDERS: ADMIT Psychiatry & Neurology Psychiatry; ATTEND Psychiatry & Neurology Psychiatry
DX: F25.1 Schizoaffective disorder, depressive type (principal); R45.851 Suicidal ideations; Z91.14 Patient's other noncompliance with medication regimen; F41.9 Anxiety disorder, unspecified; N18.9 Chronic kidney disease, unspecified; F17.210 Nicotine dependence, cigarettes, uncomplicated; D72.829 Elevated white blood cell count, unspecified; D64.9 Anemia, unspecified; B19.20 Unspecified viral hepatitis C without hepatic coma; F15.20 Other stimulant dependence, uncomplicated; F10.10 Alcohol abuse, uncomplicated; F11.90 Opioid use, unspecified, uncomplicated; F31.9 Bipolar disorder, unspecified; Z20.822 Contact with and (suspected) exposure to COVID-19; F12.20 Cannabis dependence, uncomplicated; Z65.3 Problems related to other legal circumstances; Z55.9 Problems related to education and literacy, unspecified; Z63.8 Other specified problems related to primary support group; Z59.00 Homelessness unspecified; Z56.0 Unemployment, unspecified
CPT/HCPCS: 80053; 85025; 99285; G0480; Q9967

== ENCOUNTER 2022-01-24 23:19 | Emergency (ER) | payer MEDICAID ==
[~2022-01-24] VITALS: Ht 172.7 cm; Wt 81.8 kg
[~2022-01-24 23:19] MED LIST changes: -DEXT1CAP3 PO; +DIVA-80 PO; +OLAN10 PO
[2022-01-25 00:07] LABS: BASOPHILS % (AUTO) 0.6 % (0.0-2.0); EOSINOPHILS % (AUTO) 4.1 % (1.0-6.0); HEMATOCRIT 35.6 % (41-53); HEMOGLOBIN 11.5 g/dL (13.5-17.5); LYMPHOCYTES # (AUTO) 1.9 K/uL (1.0-4.8); LYMPHOCYTES % (AUTO) 26.1 % (22.0-44.0); MEAN CORPUSCULAR HEMOGLOBIN 28.7 pg (26.0-34.0); MEAN CORPUSCULAR HGB CONC 32.2 G/dL (31.0-37.0); MEAN CORPUSCULAR VOLUME 89 fL (80-100); MONOCYTES # (AUTO) 0.7 K/uL (0.1-1.0); MONOCYTES % (AUTO) 9.2 % (2.0-9.0); NEUTROPHILS # (AUTO) 4.4 K/uL (1.8-7.7); PLATELET COUNT (AUTO) 344 K/uL (150-450); RED BLOOD CELL COUNT(AUTO) 3.99 MIL/uL (4.50-5.90); RED CELL DISTRIBUTION WIDTH 15.6 % (11.5-14.5)
[2022-01-25 00:16] LABS: ANION GAP 7 mmol/L (8-16); CALCIUM, TOTAL 8.9 mg/dL (8.8-10.5); CARBON DIOXIDE 27 mmol/L (22-29); CHLORIDE 101 mmol/L (98-107); CREATININE 1.57 mg/dL (0.60-1.30); GLUCOSE,RANDOM 90 mg/dL (70-110); POTASSIUM 4.1 mmol/L (3.5-5.1); SODIUM SERUM 135 mmol/L (136-145); UREA NITROGEN, BLOOD 25 mg/dL (7-18)
[2022-01-25 00:17] LABS: GLOMERULAR FILTR. RATE CALC 45 mL/min (>60)
[2022-01-25 00:22] LABS: ALANINE AMINOTRANSFERASE 19 U/L (12-78); ALBUMIN 3.7 g/dL (3.4-5.0); ALKALINE PHOSPHATASE 75 U/L (46-116); ASPARTATE AMINOTRANSFERASE 21 U/L (15-37); BILIRUBIN,TOTAL 0.2 mg/dL (0.1-1.0); TOTAL PROTEIN, SERUM 9.4 g/dL (6.4-8.2)
[2022-01-25] MEDS ORDERED: OLANZapine 5 MG TABLET PO ONE (00:30)
[2022-01-25 00:54] LABS: COVID AG,FIA SOURCE NASOPHARYNGEAL
[2022-01-25 06:15] VITALS: BP 121/62
== END 2022-01-25 06:16 | disposition home or self-care (01) ==
LOC: EMS 23:24
DX: F20.9 Schizophrenia, unspecified (principal); F10.20 Alcohol dependence, uncomplicated; F41.9 Anxiety disorder, unspecified; F31.9 Bipolar disorder, unspecified; K74.60 Unspecified cirrhosis of liver; F17.210 Nicotine dependence, cigarettes, uncomplicated; F15.90 Other stimulant use, unspecified, uncomplicated; Z20.822 Contact with and (suspected) exposure to COVID-19
CPT/HCPCS: 99284; 87426; 80053; 85025; 36415; G0480

== ENCOUNTER 2022-02-20 08:28 | Inpatient (IN) | payer MEDICAID ==
[~2022-02-20] VITALS: Ht 172.7 cm; Wt 79.4 kg
[2022-02-20 09:30] LABS: BASOPHILS % (AUTO) 0.5 % (0.0-2.0); HEMATOCRIT 37.8 % (41-53); HEMOGLOBIN 12.2 g/dL (13.5-17.5); LYMPHOCYTES # (AUTO) 1.3 K/uL (1.0-4.8); LYMPHOCYTES % (AUTO) 16.6 % (22.0-44.0); MEAN CORPUSCULAR HEMOGLOBIN 28.9 pg (26.0-34.0); MEAN CORPUSCULAR HGB CONC 32.2 G/dL (31.0-37.0); MEAN CORPUSCULAR VOLUME 90 fL (80-100); MONOCYTES # (AUTO) 0.4 K/uL (0.1-1.0); MONOCYTES % (AUTO) 5.6 % (2.0-9.0); NEUTROPHILS # (AUTO) 5.8 K/uL (1.8-7.7); NEUTROPHILS % (AUTO) 76.3 % (40.0-70.0); PLATELET COUNT (AUTO) 239 K/uL (150-450); RED BLOOD CELL COUNT(AUTO) 4.22 MIL/uL (4.50-5.90); RED CELL DISTRIBUTION WIDTH 16.5 % (11.5-14.5)
[2022-02-20 09:39] LABS: ANION GAP 11 mmol/L (8-16); CALCIUM, TOTAL 9.1 mg/dL (8.8-10.5); CARBON DIOXIDE 25 mmol/L (22-29); CHLORIDE 98 mmol/L (98-107); CREATININE 1.92 mg/dL (0.60-1.30); GLUCOSE,RANDOM 97 mg/dL (70-110); POTASSIUM 4.3 mmol/L (3.5-5.1); SODIUM SERUM 134 mmol/L (136-145); UREA NITROGEN, BLOOD 32 mg/dL (7-18)
[2022-02-20 09:44] LABS: GLOMERULAR FILTR. RATE CALC 36 mL/min (>60)
[2022-02-20 09:46] LABS: ALANINE AMINOTRANSFERASE 25 U/L (12-78); ALBUMIN 3.7 g/dL (3.4-5.0); ALKALINE PHOSPHATASE 81 U/L (46-116); ASPARTATE AMINOTRANSFERASE 29 U/L (15-37); BILIRUBIN,TOTAL 0.6 mg/dL (0.1-1.0); TOTAL PROTEIN, SERUM 9.4 g/dL (6.4-8.2)
[2022-02-20 12:05] LABS: AMPHET/METH SCREEN,URINE POSITIVE (NEGATIVE); BARBITURATE SCREEN, URINE NEGATIVE (NEGATIVE); BENZODIAZEPINES SCREEN,URINE NEGATIVE (NEGATIVE); CANNABINOID SCREEN,URINE NEGATIVE (NEGATIVE); COCAINE SCREEN,URINE NEGATIVE (NEGATIVE); METHADONE SCREEN, URINE NEGATIVE (NEGATIVE); OPIATE SCREEN,URINE NEGATIVE (NEGATIVE)
[2022-02-20 12:18] LABS: PHENCYCLIDINE SCREEN,URINE NEGATIVE (NEGATIVE)
[2022-02-20] MEDS ORDERED: LORazepam 2 MG TABLET PO PRN (13:15)
[2022-02-20] MEDS ORDERED: HALOPERIDOL 5 MG TABLET PO PRN (13:15)
[2022-02-20 13:41] LABS: COVID AG,FIA SOURCE NASAL SWAB
[2022-02-20 20:43] VITALS: BP 131/79
[2022-02-21] MEDS ORDERED: ALBUTEROL SULFATE HFA 90 MCG/PUFF 8 GM INHALER IH PRN (05:30)
[2022-02-21] MEDS ORDERED: BENZOCAINE/MENTHOL LOZENGE PO PRN (05:30)
[2022-02-21] MEDS ORDERED: MAG HYDROX/AL HYDROX/SIMETH ES 30 ML SUSPENSION UDCUP PO PRN (05:30)
[2022-02-21] MEDS ORDERED: PETROLATUM,WHITE 28 GM JELLY TP PRN (05:30)
[2022-02-21] MEDS ORDERED: ONDANSETRON HCL 4 MG TABLET PO PRN (05:30)
[2022-02-21] MEDS ORDERED: IBUPROFEN 600 MG TABLET PO PRN (05:30)
[2022-02-21] MEDS ORDERED: ACETAMINOPHEN 325 MG TABLET PO PRN (05:30)
[2022-02-21] MEDS ORDERED: OMEPRAZOLE 20 MG CAPSULE PO PRN (05:30)
[2022-02-21] MEDS ORDERED: LOPERAMIDE HCL 2 MG CAPSULE PO PRN (05:30)
[2022-02-21] MEDS ORDERED: CloNIDine HCL 0.1 MG TABLET PO PRN (05:30)
[2022-02-21] MEDS ORDERED: DOCUSATE SODIUM 100 MG CAPSULE PO PRN (05:30)
[2022-02-21] MEDS ORDERED: MAGNESIUM HYDROXIDE SUSPENSION 30 ML UDCUP PO PRN (05:30)
[2022-02-21] MEDS ORDERED: BACITRACIN 28 GM OINTMENT TP PRN (05:30)
[2022-02-21] MEDS: NALTREXONE HCL 50 MG TABLET PO SCH (08:20)
[2022-02-21] MEDS: OMEGA-3/DHA/EPA/FISH OIL 1,000 MG CAPSULE PO SCH (08:20)
[2022-02-21 08:47] VITALS: BP 130/80
[2022-02-21 20:03] VITALS: BP 138/75
[2022-02-21] MEDS: MELATONIN 5 MG TABLET PO SCH (20:05)
[2022-02-21] MEDS: ZOLPIDEM TARTRATE 10 MG TABLET PO PRN (21:10)
[2022-02-22] MEDS ORDERED: INFLUENZA VIRUS VACCINE QVS 2022-23 (6MO+)/PF 60 MCG/0.5 ML SYRINGE IM. ONE (06:30)
[2022-02-22 08:15] VITALS: BP 144/83
[2022-02-22] MEDS: NALTREXONE HCL 50 MG TABLET PO SCH (08:17)
[2022-02-22] MEDS: OMEGA-3/DHA/EPA/FISH OIL 1,000 MG CAPSULE PO SCH (08:17)
[2022-02-22 20:05] VITALS: BP 138/89
[2022-02-22] MEDS: MELATONIN 5 MG TABLET PO SCH (20:21)
[2022-02-22] MEDS: ZOLPIDEM TARTRATE 10 MG TABLET PO PRN (23:05)
[2022-02-23 08:10] VITALS: BP 140/80
[2022-02-23] MEDS: DIVALPROEX SODIUM 500 MG DR TABLET PO SCH ×3 (08:17→16:06)
[2022-02-23] MEDS: NALTREXONE HCL 50 MG TABLET PO SCH (08:17)
[2022-02-23] MEDS: OMEGA-3/DHA/EPA/FISH OIL 1,000 MG CAPSULE PO SCH (08:17)
[2022-02-23 20:02] VITALS: BP 138/90
[2022-02-23] MEDS: OLANZapine 7.5 MG TABLET PO SCH (20:19)
[2022-02-23] MEDS: MELATONIN 5 MG TABLET PO SCH (20:19)
[2022-02-24 07:47] LABS: CALCIUM, TOTAL 8.6 mg/dL (8.8-10.5); POTASSIUM 4.4 mmol/L (3.5-5.1)
[2022-02-24 07:54] LABS: CREATININE 1.33 mg/dL (0.60-1.30)
[2022-02-24 08:02] VITALS: BP 148/88
[2022-02-24] MEDS: NALTREXONE HCL 50 MG TABLET PO SCH (08:25)
[2022-02-24] MEDS: OMEGA-3/DHA/EPA/FISH OIL 1,000 MG CAPSULE PO SCH (08:25)
[2022-02-24] MEDS: DIVALPROEX SODIUM 500 MG DR TABLET PO SCH ×3 (08:26→16:30)
[2022-02-24 20:07] VITALS: BP 135/84
[2022-02-24] MEDS: OLANZapine 7.5 MG TABLET PO SCH (20:40)
[2022-02-24] MEDS: MELATONIN 5 MG TABLET PO SCH (20:40)
[2022-02-25 08:07] VITALS: BP 136/82
[2022-02-25 08:26] LABS: GLUCOMETER DEV NAME(LOC) POC.BV
[2022-02-25] MEDS: DIVALPROEX SODIUM 500 MG DR TABLET PO SCH ×2 (08:42→13:07)
[2022-02-25] MEDS: NALTREXONE HCL 50 MG TABLET PO SCH (08:42)
[2022-02-25] MEDS: OMEGA-3/DHA/EPA/FISH OIL 1,000 MG CAPSULE PO SCH (08:42)
[2022-02-25] MEDS ORDERED: OLAN7.5T22 PO (10:19)
[2022-02-25] MEDS ORDERED: DIVA-112 PO (10:19)
== END 2022-02-25 14:17 | disposition home or self-care (01) | DRG 750 ==
LOC: EMS 08:32 → B2S 16:44
PROVIDERS: ADMIT Psychiatry & Neurology Psychiatry; ATTEND Psychiatry & Neurology Psychiatry
DX: F25.9 Schizoaffective disorder, unspecified (principal); R45.851 Suicidal ideations; D64.9 Anemia, unspecified; B18.2 Chronic viral hepatitis C; F10.20 Alcohol dependence, uncomplicated; F15.90 Other stimulant use, unspecified, uncomplicated; F31.9 Bipolar disorder, unspecified; F41.9 Anxiety disorder, unspecified; F17.210 Nicotine dependence, cigarettes, uncomplicated; Z20.822 Contact with and (suspected) exposure to COVID-19; G47.00 Insomnia, unspecified; I12.9 Hypertensive chronic kidney disease with stage 1 through stage 4 chronic kidney disease, or unspecified chronic kidney disease; K21.9 Gastro-esophageal reflux disease without esophagitis; N18.30 Chronic kidney disease, stage 3 unspecified; Z28.21 Immunization not carried out because of patient refusal
CPT/HCPCS: 80048; 80053; 80307; 85025; 93005; 99285; G0480; Q9967